=== PATIENT | female | born 1930 | race Caucasian/White ===

== ENCOUNTER 2018-01-28 13:13 | Inpatient (IN) | payer OTHER ==
[2018-01-28 13:22] VITALS: BMI 17.7
[2018-01-28] MEDS ORDERED: MEROPENEM 1 GM in DEXTROSE 5%-WATER 100 ML IVPB ONE ×2 (13:47→16:00)
[2018-01-28] MEDS ORDERED: VANCOMYCIN 1,000 MG in DEXTROSE 5%-WATER - 250 ML IVPB ONE (13:47)
--- NOTE | 2018-01-28 13:52 | PDOC ---
History of Present Illness - General History Source: Patient Exam Limitations: No Limitations - History of Present Illness Initial Comments: 01/28/18 14:31 The patient is a 87 year old female, with a significant PMH of hypertension, CVA , who presents to the emergency department from wound care with measured fever and worsening erythema/warmth/swelling of the right lower extremity. The patient states she has a right lower extremity wound just above the right ankle for which she follows with wound care every 1-2 weeks for the past 2 years. The patient states today she was sent to the emergency department as she was noted to be febrile and had increased warmth/swelling/erythema surrounding the RLE wound. The patient endorses chills and states she has chronic right ankle pain ( denies any new pain). The patient denies chest pain, shortness of breath, headache and dizziness. Denies nausea, vomit, diarrhea and constipation. Denies dysuria, frequency, urgency and hematuria. Allergies: aspirin, penicillins, [sulfasalazine] <Israel Luque - Last Filed: 01/28/18 16:53> <Luis Davis - Last Filed: 01/28/18 17:05> - General Chief Complaint: Wound Stated Complaint: WOUND Time Seen by Provider: 01/28/18 13:50 Past History <Israel Luque - Last Filed: 01/28/18 16:53> - Past Medical History Anemia: No Asthma: No Cancer: No Cardiac Disorders: No CVA: Yes COPD: No CHF: No Dementia: No Diabetes: No GI Disorders: No Disorders: Yes (over active bladder) HTN: Yes Hypercholesterolemia: No Liver Disease: No Seizures: No Thyroid Disease: No - Surgical History Abdominal Surgery: Yes Appendectomy: Yes Cardiac Surgery: No Cholecystectomy: No Lung Surgery: No Orthopedic Surgery: No - Suicide/Smoking/Psychosocial Hx Smoking History: Never smoked Have you smoked in the past 12 months: No Hx Alcohol Use: No Drug/Substance Use Hx: No <Luis Davis - Last Filed: 01/28/18 17:05> - Past Medical History Allergies/Adverse Reactions: Allergies Allergy/AdvReac Type Severity Reaction Status Date / Time aspirin Allergy Verified 01/28/18 13:18 Penicillins Allergy Verified 01/28/18 13:18 sulfasalazine Allergy Uncoded 01/28/18 13:18 Home Medications: Ambulatory Orders Amlodipine Besylate/Benazepril 5 mg PO DAILY 11/08/15 Tylenol 325 mg PO PRN 11/08/15 Multivitamin 1 tab PO DAILY 12/13/15 Vitamin B12 1 tab PO DAILY 12/27/15 Vitamin C 1 tab PO DAILY 01/29/17 Review of Systems - Review of Systems Comments:: 01/28/18 14:31 A complete review of 10 out of 10 review of systems is taken and is negative apart from what is previously mentioned below and in the HPI. <Israel Luque - Last Filed: 01/28/18 16:53> *Physical Exam - Vital Signs Last Vital Signs Temp Pulse Resp BP Pulse Ox 98.1 F 71 18 164/57 96 01/28/18 13:17 01/28/18 13:17 01/28/18 13:17 01/28/18 13:17 01/28/18 13:17 - Physical Exam Comments: 01/28/18 14:31 Vitals: Triage vital signs reviewed General Appearance: No acute distress, well nourished, well developed Head: Atraumatic Neck: Supple; No nuchal rigidity Chest Wall: Nontender Cardiac: Regular rate and rhythm, no murmurs, no rubs, no gallops Lungs: Clear to auscultation bilateral, good air movement bilaterally Abdomen: Soft, nondistended, normal bowel sounds, nontender to palpation Rectal: Exam deferred Extremities: (+) 16 cm wound from the dorsal aspect of the right foot to the distal anterior calf, warm, edematous and erythematous. (+) Erythema circumscribing the leg. No cyanosis, clubbing. Skin: Warm and dry, no rashes or lesions, no rash, no petechiae Psych: Normal mood, normal affect <Israel Luque - Last Filed: 01/28/18 16:53> - Vital Signs Last Vital Signs Temp Pulse Resp BP Pulse Ox 98.1 F 71 18 164/57 96 01/28/18 13:17 01/28/18 13:17 01/28/18 13:17 01/28/18 13:17 01/28/18 13:17 <Luis Davis - Last Filed: 01/28/18 17:05> Heart Score/ECG Review - ECG Impressions Comment:: 01/28/18 14:33 EKG performed at 1425 demonstrates sinus rhythm no ST elevations or T-wave inversions left axis deviation Interpreted by me. <Luis Davis - Last Filed: 01/28/18 17:05> ED Treatment Course - LABORATORY CBC & Chemistry Diagram: 01/28/18 13:52 01/28/18 13:52 <Israel Luque - Last Filed: 01/28/18 16:53> - LABORATORY CBC & Chemistry Diagram: 01/28/18 13:52 01/28/18 13:52 - RADIOLOGY Radiology Studies Ordered: Category Date Time Status CHEST X-RAY PORTABLE* [RAD] Stat Radiology 01/28/18 13:46 Ordered <Luis Davis - Last Filed: 01/28/18 17:05> Medical Decision Making - Medical Decision Making 01/28/18 14:34 Progressively worsening right lower extremity ulcer disease. Sent from wound clinic for IV antibiotics. Seen by infectious disease. Recommends Vanc and Zosyn. Troponin of indeterminate value. We will admit to telemetry and trend troponins. ASA held 2/2 allergy Will admit to medicine for further management. 01/28/18 17:04 01/28/18 17:04 <Luis Davis - Last Filed: 01/28/18 17:05> *DC/Admit/Observation/Transfer - Attestations Scribe Attestion: 01/28/18 14:41 Documentation prepared by Israel Luque, acting as paramedical aide for Luis Davis MD. <Israel Luque - Last Filed: 01/28/18 16:53> - Discharge Dispostion Decision to Admit order: Yes <Luis Davis - Last Filed: 01/28/18 17:05> Diagnosis at time of Disposition: Venous ulcer Cellulitis Qualifiers: Site of cellulitis: extremity Site of cellulitis of extremity: lower extremity Laterality: right Qualified Code(s): L03.115 - Cellulitis of right lower limb - Referrals Referrals: Esvin Zaldivar MD [Primary Care Provider] - - Patient Instructions - Post Discharge Activity
[2018-01-28] MEDS ORDERED: VANCOMYCIN 1 GRAM (PRE-DOCKED) 1,000 MG/250 ML BAG IVPB ONE (14:16)
[2018-01-28 14:26] LABS: BASO % 0.3 % (0-2.0); EOS % 0.8 % (0-4.5); HEMATOCRIT 55.5 % (32.4-45.2); HEMOGLOBIN 18.1 GM/dL (10.7-15.3); LYMPH % 7.2 % (8-40); MCH 31.9 pg (25.7-33.7); MCHC 32.6 g/dl (32.0-36.0); MEAN PLT VOLUME 8.7 fl (7.5-11.1); MONO % 7.7 % (3.8-10.2); PLATELET COUNT 479 K/MM3 (134-434); RBC 5.66 M/mm3 (3.60-5.2); RDW 15.8 % (11.6-15.6); WHITE BLOOD COUNT 10.2 K/mm3 (4.0-10.0)
[2018-01-28 14:51] LABS: INR 1.08 (0.83-1.09); PROTHROMBIN TIME (PATIENT) 12.2 SEC (9.7-13.0)
[2018-01-28 14:53] LABS: ACTIVATED PTT 38.4 SECONDS (25.2-36.5); ALBUMIN 3.4 g/dl (3.4-5.0); ALK PHOS 117 U/L (45-117); ANION GAP 6 MMOL/L (8-16); BILIRUBIN,TOTAL 0.5 mg/dL (0.2-1.0); BLOOD UREA NITROGEN 29 mg/dL (7-18); CALCIUM 9.6 mg/dL (8.5-10.1); CHLORIDE 101 mmol/L (98-107); CO2 32 mmol/L (21-32); GLUCOSE,RANDOM 85 mg/dL (74-106); SGPT/ALT 17 U/L (12-78); SODIUM 139 mmol/L (136-145); TOT PROT 8.4 g/dl (6.4-8.2)
[2018-01-28 14:54] LABS: POTASSIUM 4.7 mmol/L (3.5-5.1); SGOT/AST 23 U/L (15-37)
[2018-01-28 14:57] LABS: VENOUS PC02 53.6 mmHg (38-52); VENOUS PH 7.38 (7.32-7.42); VENOUS PO2 23.3 mmHg (28-48)
[2018-01-28] MEDS ORDERED: ACETAMINOPHEN 325 MG TABLET (FP) PO PRN (16:37)
[2018-01-28] MEDS ORDERED: SODIUM CHLORIDE 1,000 ML IV SCH (16:45)
[2018-01-28] MEDS ORDERED: SODIUM CHLORIDE 500 ML IV STA (16:50)
--- NOTE | 2018-01-28 16:56 | PN ---
Teaching Attending Note Name of Resident: Bertha Cabral ATTENDING PHYSICIAN STATEMENT I saw and evaluated the patient. I reviewed the resident's note and discussed the case with the resident. I agree with the resident's findings and plan as documented with exceptions below. SUBJECTIVE: 87 yof with PMHx of Chronic RLE stasis dermatitis with ulceration, being followed at wound care since 2016, prior debridement, seen on 01/15/2018, when was suggested IV antibiotics (vancomycin, ?unclear if received at the [facility]87 [facility]), also with HTN, CVA ?prior deficits, was seen at wound care center today by Dr. Gil noted with chills, worsening right leg ulcer redness/swelling , sent in with concerns for infection. patient OX3 currently but unable to provide detailed history about her leg wound , recent treatment. Reports pain right outer leg area, feels cold currently. Denies any chest pain, palpitations,dyspnea, dizziness, or urinary symptoms. Limited ambulation with walker with no c/o exertional chest pain/dyspnea. 12 point ROS limited but negative except above. Reported itchy rash on forehead after receiving antibotics in the ED, patient states "was scratching as felt other people were using her comb", currently improved, no itching. OBJECTIVE: Vital Signs Period Temp Pulse Resp BP Sys/Nixon Pulse Ox Last 24 Hr 98.1 F 70-71 18-18 143-164/57-72 92-96 Intake & Output 01/25/18 01/26/18 01/27/18 01/28/18 23:59 23:59 23:59 23:59 Weight 110 lb GENERAL: Awake, alert, and fully oriented, in no acute distress. HEAD: Normal with no signs of trauma. HEENT: Right pupil reactive, left pupil prior cataract surgery, ?mild lid droop on left, mild left facial droop, patchy erythematous areas with scabs on forehead (resolving prior MD who had seen her recently in the ED), non pruritic : Ears normal, nares patent, oropharynx clear without exudates. Moist mucous membranes. NECK: Soft, supple, no JVD LUNGS: Breath sounds equal, clear to auscultation bilaterally. No wheezes, and no crackles. No accessory muscle use. HEART: S1s2 regular, ?Systolic murmur in aortic region ABDOMEN: Soft, nontender, not distended, normoactive bowel sounds, no guarding, no rebound, no masses. MUSCULOSKELETAL: Normal range of motion at all joints. No bony deformities or tenderness. No CVA tenderness. UPPER EXTREMITIES: 2+ pulses, warm, well-perfused. No cyanosis. No clubbing. No peripheral edema. 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 Good eye contact. Appropriate mood and affect. SKIN: Warm, dry, normal turgor, no rashes or lesions noted, normal capillary refill. Active Medications Acetaminophen (Tylenol -) 650 mg PO Q6H PRN PRN Reason: FEVER Meropenem 1 gm/ Dextrose 100 mls @ 200 mls/hr IVPB Q8H-IV BARB Vancomycin HCl 1,000 mg/ (Dextrose) 250 mls @ 166.667 mls/hr IVPB Q12H BARB; Protocol Meropenem 1 gm/ Dextrose 100 mls @ 200 mls/hr IVPB Q8H BARB Stop: 01/29/18 08:29 Vancomycin HCl (Vancomycin 1 Gm Premix -) 1 gm in 200 mls @ 133.333 mls/hr IVPB ONCE ONE Stop: 01/29/18 03:29 Active Medications Acetaminophen (Tylenol -) 650 mg PO Q6H PRN PRN Reason: FEVER Meropenem 1 gm/ Dextrose 100 mls @ 200 mls/hr IVPB Q8H-IV BARB Vancomycin HCl 1,000 mg/ (Dextrose) 250 mls @ 166.667 mls/hr IVPB Q12H BARB; Protocol Meropenem 1 gm/ Dextrose 100 mls @ 200 mls/hr IVPB Q8H BARB Stop: 01/29/18 08:29 Vancomycin HCl (Vancomycin 1 Gm Premix -) 1 gm in 200 mls @ 133.333 mls/hr IVPB ONCE ONE Stop: 01/29/18 03:29 Laboratory Results - last 24 hr 01/28/18 01/28/18 01/28/18 13:52 13:52 13:52 WBC 10.2 H RBC 5.66 H Hgb 18.1 H Hct 55.5 H MCV 98.0 H MCH 31.9 MCHC 32.6 RDW 15.8 H Plt Count 479 H MPV 8.7 Absolute Neuts (auto) 8.6 H Neutrophils % 84.0 H Lymphocytes % 7.2 L Monocytes % 7.7 Eosinophils % 0.8 Basophils % 0.3 Nucleated RBC % 0 PT with INR 12.20 INR 1.08 PTT (Actin FS) 38.4 H VBG pH 7.38 POC VBG pCO2 53.6 H POC VBG pO2 23.3 L Mixed VBG HCO3 30.8 H Sodium Potassium Chloride Carbon Dioxide Anion Gap BUN Creatinine Creat Clearance w eGFR Random Glucose Lactic Acid Calcium Total Bilirubin AST ALT Alkaline Phosphatase Troponin I Total Protein Albumin Urine Color Urine Appearance Urine pH Ur Specific [place] Urine Protein Urine Glucose (UA) Urine Ketones Urine Blood Urine Nitrite Urine Bilirubin Urine Urobilinogen Ur Leukocyte Esterase Urine WBC (Auto) Urine RBC (Auto) Ur Epithelial Cells Urine Mucus 01/28/1818 01/28/18 13:52 13:52 16:40 WBC RBC Hgb Hct MCV MCH MCHC RDW Plt Count MPV Absolute Neuts (auto) Neutrophils % Lymphocytes % Monocytes % Eosinophils % Basophils % Nucleated RBC % PT with INR INR PTT (Actin FS) VBG pH POC VBG pCO2 POC VBG pO2 Mixed VBG HCO3 Sodium 139 Potassium 4.7 Chloride 101 Carbon Dioxide 32 Anion Gap 6 L BUN 29 H Creatinine 1.0 Creat Clearance w eGFR 52.33 Random Glucose 85 Lactic Acid 0.8 Calcium 9.6 Total Bilirubin 0.5 AST 23 ALT 17 Alkaline Phosphatase 117 Troponin I 0.11 H Total Protein 8.4 H Albumin 3.4 Urine Color Dkyellow Urine Appearance Slcloudy Urine pH 6.0 Ur Specific [place] 1.016 Urine Protein 2+ H Urine Glucose (UA) Negative Urine Ketones Negative Urine Blood Negative Urine Nitrite Negative Urine Bilirubin Negative Urine Urobilinogen Negative Ur Leukocyte Esterase Negative Urine WBC (Auto) 5 Urine RBC (Auto) 3 Ur Epithelial Cells Rare Urine Mucus Rare CXR no acute process EKG NSR, QS in V1-V2, Biphasic T waves in V5-V6 ASSESSMENT AND PLAN: 87 yof with chronic non healing RLE ulcer here with cellulitis, and elevated troponin. -Acute RLE celluitis superimposed on chronic non healing ulcer with stasis dermatitis -Elevated troponin, ?Demand from above, r/o ACS -Elevated Hb, ?Hemoconcentration, Polycythemia, no prior history -HTN -CVA -Dementia Plan: Discussed with Dr. Del Rio. meropenem/vancomycin. Blood cx sent. Wound care consult Dr. Gil. LLE Duplex. ?rash in the ED, improved currently. Benadryl/Famotidine. Monitor for now NO chest pain or concerning symptoms. EKG noted. Telemetry, cycle cardiac enzymes. 2D echo, cardiology input. Repeat EKG. 250 ml IVF bolus x 1, monitor h/h. Encourage oral fluid intake. Avoid standing IVF for now, pending cardiac w/u given unknown EF and ?h/o valvular disease Home amlodipine. DVTPPX with heparin Retrieve more info from [place] including code status. Dispo admit to telemetry. Plan discussed with patient. Total admit time spent 65 min.
[2018-01-28] MEDS ORDERED: FAMOTIDINE 20 MG/50 ML IVPB 20 MG/50 ML MG IVPB ONE ×2 (17:00→23:30)
[2018-01-28 17:27] LABS: URINE APPEARANCE SLCLOUDY; URINE BILIRUBIN NEGATIVE (<2.0 mg/dL); URINE COLOR DKYELLOW; URINE GLUCOSE (UA) NEGATIVE (NEGATIVE); URINE KETONE NEGATIVE (NEGATIVE); URINE LEUK ESTERASE NEGATIVE (NEGATIVE); URINE NITRITE NEGATIVE (NEGATIVE); URINE UROBILINOGEN NEGATIVE mg/dL (0.2-1.0)
[2018-01-28 17:28] LABS: URINE PROTEIN 2+ (NEGATIVE)
[2018-01-28 17:33] LABS: EPI CELLS RARE /HPF (FEW); URINE MUCUS RARE
--- NOTE | 2018-01-28 17:36 | HP ---
CHIEF COMPLAINT: Non healing and draining R lateral LE wound PCP: Dr Hutton ([facility], [place]) HISTORY OF PRESENT ILLNESS: Pt is an 87 yo F resident of [facility], with PMH of HTN, actinic keratosis, CVA (L sided mild facial deficit), RLE non healing wound, dementia, overactive bladder, brought in by sister after referral from wound care center with worsening draining and erythema of R above ankle wound. Pt has been following Dr Gil at the wound care for the past 2 years every 1-2 weeks for an above R ankle wound. Previously she was recommended for antibiotics- received vanco around last week opf November in [place]. Pt reported subjective chills and increased pain and drainage at wound site a couple of days prior. Pt ambulates with walker. In the ED she received vanco and was noted to have reddish rashes on the forehead with itching. 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, actinic keratosis, RLE non healing wound, dementia, overactive bladder Displaced intertrochnateric fracture- Apr 2016 PAST SURGICAL HISTORY: Cataract extraction Social History: Smoking: Alcohol: Drugs: Family History: Allergies aspirin Allergy (Verified 01/28/18 13:18) Penicillins Allergy (Verified 01/28/18 13:18) sulfasalazine Allergy (Uncoded 01/28/18 13:18) HOME MEDICATIONS: Home Medications Medication Instructions Recorded Amlodipine Besylate/Benazepril 5 mg PO DAILY 11/08/15 Tylenol 325 mg PO PRN 11/08/15 Multivitamin 1 tab PO DAILY 12/13/15 Vitamin B12 1 tab PO DAILY 12/27/15 Vitamin C 1 tab PO DAILY 01/29/17 REVIEW OF SYSTEMS Difficult to ascertain as patient is demented and veers off topic PHYSICAL EXAMINATION Vital Signs - 24 hr 01/28/18 13:17 Temperature 98.1 F Pulse Rate 71 Respiratory 18 Rate Blood Pressure 164/57 O2 Sat by Pulse 96 Oximetry (%) GENERAL: Awake, alert, and oriented to person, place and time with some confusion, in mild respiratory distress. HEAD: Normal with no signs of trauma. Forehead erythematous, pruritic,papular rashes EYES: Pupils equal, round and reactive to light, extraocular movements intact, EARS, NOSE, THROAT: Dry mucous membranes. NECK: Normal range of motion, supple , no JVD, LUNGS: Breath sounds equal, clear to auscultation bilaterally. No wheezes, and no crackles. HEART: Regular rate and rhythm, distant, S1 and S2 ABDOMEN: Soft, nontender, not distended, normoactive bowel sounds, no guarding, no rebound, no masses. MUSCULOSKELETAL: Normal range of motion at all joints. 6x8cm R lateral LE ulcer. Superficial with yellowish exudates, not foul smelling. White dressing. No bleeding. Erythematous warm surroundings. No CVA tenderness. LOWER EXTREMITIES: 2+ pulses, warm, well-perfused. No peripheral edema. NEUROLOGICAL: Cranial nerves II-XII intact. Normal speech. PSYCHIATRIC: Cooperative. Good eye contact. Laboratory Results - last 24 hr 01/28/18 01/28/18 01/28/18 13:52 13:52 13:52 WBC 10.2 H RBC 5.66 H Hgb 18.1 H Hct 55.5 H MCV 98.0 H MCH 31.9 MCHC 32.6 RDW 15.8 H Plt Count 479 H MPV 8.7 Absolute Neuts (auto) 8.6 H Neutrophils % 84.0 H Lymphocytes % 7.2 L Monocytes % 7.7 Eosinophils % 0.8 Basophils % 0.3 Nucleated RBC % 0 PT with INR 12.20 INR 1.08 PTT (Actin FS) 38.4 H VBG pH 7.38 POC VBG pCO2 53.6 H POC VBG pO2 23.3 L Mixed VBG HCO3 30.8 H Sodium Potassium Chloride Carbon Dioxide Anion Gap BUN Creatinine Creat Clearance w eGFR Random Glucose Lactic Acid Calcium Total Bilirubin AST ALT Alkaline Phosphatase Troponin I Total Protein Albumin Urine Color Urine Appearance Urine pH Ur Specific [place] Urine Protein Urine Glucose (UA) Urine Ketones Urine Blood Urine Nitrite Urine Bilirubin Urine Urobilinogen Ur Leukocyte Esterase Urine WBC (Auto) Urine RBC (Auto) Ur Epithelial Cells Urine Mucus 01/28/18 01/28/18 01/28/18 13:52 13:52 16:40 WBC RBC Hgb Hct MCV MCH MCHC RDW Plt Count MPV Absolute Neuts (auto) Neutrophils % Lymphocytes % Monocytes % Eosinophils % Basophils % Nucleated RBC % PT with INR INR PTT (Actin FS) VBG pH POC VBG pCO2 POC VBG pO2 Mixed VBG HCO3 Sodium 139 Potassium 4.7 Chloride 101 Carbon Dioxide 32 Anion Gap 6 L BUN 29 H Creatinine 1.0 Creat Clearance w eGFR 52.33 Random Glucose 85 Lactic Acid 0.8 Calcium 9.6 Total Bilirubin 0.5 AST 23 ALT 17 Alkaline Phosphatase 117 Troponin I 0.11 H Total Protein 8.4 H Albumin 3.4 Urine Color Dkyellow Urine Appearance Slcloudy Urine pH 6.0 Ur Specific [place] 1.016 Urine Protein 2+ H Urine Glucose (UA) Negative Urine Ketones Negative Urine Blood Negative Urine Nitrite Negative Urine Bilirubin Negative Urine Urobilinogen Negative Ur Leukocyte Esterase Negative Urine WBC (Auto) 5 Urine RBC (Auto) 3 Ur Epithelial Cells Rare Urine Mucus Rare Ambulatory Orders Tylenol 325 mg PO PRN 11/08/15 Multivitamin 1 tab PO DAILY 12/13/15 Vitamin B12 1 tab PO DAILY 12/27/15 Vitamin C 1 tab PO DAILY 01/29/17 Amlodipine Besylate 10 mg PO DAILY 01/28/18 Donepezil HCl [Aricept] 5 mg PO HS 01/28/18 Memantine HCl [Namenda Xr] 14 mg PO DAILY 01/28/18 ASSESSMENT/PLAN: 87 yo F resident of [facility], with PMH of HTN, CVA (L sided mild facial deficit), RLE non healing wound, dementia, overactive bladder, brought in by sister after referral from wound care center with worsening draining and erythema of R above ankle wound. #RLE cellulitis with ulcer Meropenem Vanco ID consult- Dr Del Rio RLE duplex ESR, CRP Xray RLE Vascular consult- Dr Gil #Skin rash Itching rash on face R/o drug allergy or vanco / toni syndrome Benadryl /famotidine given, rash resolved Actinic keratosis Unsure if forehead rash was related to the actinic keratosis hx in past #Troponinemia: Elevated trops-0.11, trend Cardio consult- Dr Hummel EKG=- biphasic TW noted in lat leads, repeat EKG Echo #HTN Cont amlodipine #Dementia Cont memantine, donepezil #CVA hx Asa allergy noted in charts #Overactive bladder Stable #FEN 500mls of Nsaline given Monitor lytes and replete as needed Low sodium diet PPx Lovenox No GI required at this time Dispo: Tele Code status: Confirmed DNI/DNR with [facility]- documents to be faxed over Visit type - Emergency Visit Emergency Visit: Yes ED Registration Date: 01/28/18 Care time: The patient presented to the Emergency Department on the above date and was hospitalized for further evaluation of their emergent condition. - New Patient This patient is new to me today: Yes Date on this admission: 01/29/18 - Critical Care Critical Care patient: No Hospitalist Screening - Colonoscopy Questionnaire Colonoscopy Questionnaire: Colonoscopy Questionnaire - Patient: 50 - 75 years old and never had a screening colonoscopy: No History of colon or rectal polyps, or CA: Unknown History of IBD, Crohn's disease or UC: Unknown History of abdominal radiation therapy as a child: Unknown - Relative: 1 with colon or rectal CA, or polyps at age 60 or younger: Unknown Colon or rectal CA diagnosed at age 45 or younger: Unknown Multiple relatives with colon or rectal CA: Unknown - Outcome: Screening Result: Negative Screen
--- NOTE | 2018-01-28 21:45 | HOSP ---
Subjective - Review of Symptoms Subjective: Received fax from patient's [facility] containing DNR/DNI order signed by the patient. Both the patient and her family member both confirm that this is still their wishes. DNR/DNI order entered into the computer and faxed documents placed in patient's paper chart. Physical Examination Vital Signs: Vital Signs Temperature 98.1 F 01/28/18 13:17 Pulse Rate 70 01/28/18 17:55 Respiratory Rate 18 01/28/18 17:55 Blood Pressure 143/72 01/28/18 17:55 O2 Sat by Pulse Oximetry (%) 92 L 01/28/18 17:55 Labs: CBC, BMP 01/28/18 13:52 01/28/18 13:52 Visit type - Emergency Visit Emergency Visit: Yes ED Registration Date: 01/28/18 Care time: The patient presented to the Emergency Department on the above date and was hospitalized for further evaluation of their emergent condition. - New Patient This patient is new to me today: Yes Date on this admission: 01/28/18 - Critical Care Critical Care patient: No
[2018-01-28] MEDS: MEROPENEM 1 GM in DEXTROSE 5%-WATER - 100 ML IVPB SCH (23:19)
[2018-01-28] MEDS: DONEPEZIL HCL 5 MG TABLET (FP) PO SCH (23:22)
[2018-01-28] MEDS: amLODIPine BESYLATE 10 MG TABLET (FP) PO SCH (23:22)
[2018-01-29] MEDS ORDERED: PT OWN MED DRAWER 7, Y5N ONE ×2 (01:42→08:05)
[2018-01-29] MEDS ORDERED: VANCOMYCIN 1 GM PREMIX - 1 GM/200 ML BAG IVPB ONE (02:00)
[2018-01-29] MEDS ORDERED: VANCOMYCIN 1,000 MG in DEXTROSE 5%-WATER - 250 ML IVPB SCH (04:00)
[2018-01-29 06:52] LABS: BASO % 0.9 % (0-2.0); EOS % 2.6 % (0-4.5); HEMOGLOBIN 17.6 GM/dL (10.7-15.3); LYMPH % 7.8 % (8-40); MCH 31.9 pg (25.7-33.7); MCHC 32.5 g/dl (32.0-36.0); MEAN CELL VOLUME 98.2 fl (80-96); MEAN PLT VOLUME 8.4 fl (7.5-11.1); MONO % 8.6 % (3.8-10.2); NEUT % 80.1 % (42.8-82.8); PLATELET COUNT 383 K/MM3 (134-434); RBC 5.49 M/mm3 (3.60-5.2); RDW 15.9 % (11.6-15.6); WHITE BLOOD COUNT 9.7 K/mm3 (4.0-10.0)
[2018-01-29 07:30] LABS: ALBUMIN 2.7 g/dl (3.4-5.0); ANION GAP 7 MMOL/L (8-16); BLOOD UREA NITROGEN 20 mg/dL (7-18); CALCIUM 8.6 mg/dL (8.5-10.1); CHLORIDE 104 mmol/L (98-107); CO2 29 mmol/L (21-32); GLUCOSE,RANDOM 82 mg/dL (74-106); MAGNESIUM 1.9 mg/dL (1.8-2.4); POTASSIUM 4.8 mmol/L (3.5-5.1); SODIUM 140 mmol/L (136-145)
[2018-01-29 07:38] LABS: ALK PHOS 97 U/L (45-117); BILIRUBIN,TOTAL 0.9 mg/dL (0.2-1.0); PHOSPHOROUS 3.1 mg/dL (2.5-4.9); SGOT/AST 17 U/L (15-37); SGPT/ALT 13 U/L (12-78); TOT PROT 7.2 g/dl (6.4-8.2)
[2018-01-29] MEDS: MEROPENEM 1 GM in DEXTROSE 5%-WATER - 100 ML IVPB SCH (08:18)
[2018-01-29] MEDS: amLODIPine BESYLATE 10 MG TABLET (FP) PO SCH (09:00)
[2018-01-29] MEDS ORDERED: PATIENT'S OWN MEDICATION (NON-FORMULARY) (Memantine Hcl [Namenda Xr] 14 MG) PO SCH (10:00)
--- NOTE | 2018-01-29 10:31 | EKG ---
Test Reason : Blood Pressure : / mmHG Vent. Rate : 070 BPM Atrial Rate : 070 BPM P-R Int : 170 ms QRS Dur : 100 ms QT Int : 404 ms P-R-T Axes : 026 -43 067 degrees QTc Int : 436 ms NORMAL SINUS RHYTHM LEFT AXIS DEVIATION MODERATE VOLTAGE CRITERIA FOR LVH, MAY BE NORMAL VARIANT CANNOT RULE OUT SEPTAL INFARCT (CITED ON OR BEFORE 28-JAN-2018) ABNORMAL ECG WHEN COMPARED WITH ECG OF 28-JAN-2018 14:25, PREMATURE ATRIAL COMPLEXES ARE NO LONGER PRESENT Confirmed by ESAU LARA, DRISS ([id number]) on 01/29/2018 10:31:00 AM Referred By: Confirmed By:DRISS CIFUENTES MD
--- NOTE | 2018-01-29 10:32 | EKG ---
Test Reason : Blood Pressure : / mmHG Vent. Rate : 079 BPM Atrial Rate : 079 BPM P-R Int : 166 ms QRS Dur : 100 ms QT Int : 386 ms P-R-T Axes : 037 -42 063 degrees QTc Int : 442 ms SINUS RHYTHM WITH PREMATURE ATRIAL COMPLEXES LEFT AXIS DEVIATION MODERATE VOLTAGE CRITERIA FOR LVH, MAY BE NORMAL VARIANT CANNOT RULE OUT SEPTAL INFARCT , AGE UNDETERMINED ABNORMAL ECG NO PREVIOUS ECGS AVAILABLE Confirmed by ESAU LARA, DRISS ([id number]) on 01/29/2018 10:31:37 AM Referred By: Confirmed By:DRISS CIFUENTES MD
[2018-01-29] MEDS ORDERED: ENOXAPARIN NA (PORCINE) 60 MG/0.6 ML DISP.SYRIN SQ ONE (12:30)
--- NOTE | 2018-01-29 13:14 | CON.CARD ---
Consult Consult Specialty:: Cardiology Referred by:: Jocelyn Reason for Consultation:: elevated troponin - History of Present Illness Chief Complaint: elevated troponin History of Present Illness: 87F h/o HTN, CVA, RLE nonhealing wound, dementia p/w worsening draining and erythema from foot wound. Has been seeing Dr. Gil at wound care, on abx. In the ER labs notable for WBC 10.2, H/H 18.2/55.5, trop 0.11, lactate 0.8. Received IV abx. Trop 0.11->0.2->0.37->0.35. No chest pain, dyspnea, orthopnea , PND. RLE venous ultrasound shows extensive DVT in common and distal superficial femoral veins and popliteal. Patient is on lovenox for anticoagulation, CTA chest ordered and echo is pending. Denies complaints currently, however history is limited due to dementia. 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 Cardio/Vascular: Yes: HTN - Alcohol/Substance Use Hx Alcohol Use: No - Smoking History Smoking history: Never smoked Have you smoked in the past 12 months: No Home Medications - Allergies Allergies/Adverse Reactions: Allergies Allergy/AdvReac Type Severity Reaction Status Date / Time aspirin Allergy Verified 01/28/18 13:18 Penicillins Allergy Verified 01/28/18 13:18 sulfasalazine Allergy Uncoded 01/28/18 13:18 - Home Medications Home Medications: Ambulatory Orders Tylenol 325 mg PO PRN 11/08/15 Multivitamin 1 tab PO DAILY 12/13/15 Vitamin B12 1 tab PO DAILY 12/27/15 Vitamin C 1 tab PO DAILY 01/29/17 Amlodipine Besylate 10 mg PO DAILY 01/28/18 Donepezil HCl [Aricept] 5 mg PO HS 01/28/18 Memantine HCl [Namenda Xr] 14 mg PO DAILY 01/28/18 Family Disease History - Family Disease History Family History: Unable to Obtain Review of Systems - Review of Systems Constitutional: reports: No Symptoms Eyes: reports: No Symptoms HENT: reports: No Symptoms Neck: reports: No Symptoms Cardiovascular: reports: No Symptoms Respiratory: reports: No Symptoms Gastrointestinal: reports: No Symptoms Genitourinary: reports: No Symptoms Musculoskeletal: reports: No Symptoms Integumentary: reports: No Symptoms Neurological: reports: No Symptoms Endocrine: reports: No Symptoms Hematology/Lymphatic: reports: No Symptoms Psychiatric: reports: No Symptoms Vital Signs: Vital Signs Temperature 98.0 F 01/29/18 10:00 Pulse Rate 72 01/29/18 10:00 Respiratory Rate 18 01/29/18 10:00 Blood Pressure 133/82 01/29/18 10:00 O2 Sat by Pulse Oximetry (%) 95 01/29/18 09:00 Constitutional: Yes: Well Nourished, No Distress, Calm Eyes: Yes: Conjunctiva Clear, EOM Intact HENT: Yes: Atraumatic, Normocephalic Neck: Yes: Supple, Trachea Midline Respiratory: Yes: Regular, CTA Bilaterally Gastrointestinal: Yes: Normal Bowel Sounds, Soft Renal/: Yes: WNL Cardiovascular: Yes: Regular Rate and Rhythm JVD: No Carotid Bruit: No PMI: Non-Displaced Heart Sounds: Yes: S1, S2 Musculoskeletal: Yes: WNL Extremities: Yes: Other (RLE foot/ankle c bandages) Edema: Yes Edema: RLE: 1+ Peripheral Pulses WNL: No Peripheral Pulses: 1+ Left Doralis Pedis, 1+ Right Dorsalis Pedis Integumentary: Yes: WNL Neurological: Yes: Alert Psychiatric: Yes: Alert - Other Data Labs, Other Data: CBC, BMP 01/29/18 06:05 01/29/18 06:05 INR, PTT INR 1.08 (0.83-1.09) 01/28/18 13:52 Troponin, BNP 01/28/18 01/28/18 01/29/18 13:52 19:30 06:05 Troponin I 0.11 H 0.20 H 0.37 H Troponin, BNP 01/28/18 01/28/18 01/29/18 13:52 19:30 06:05 Troponin I 0.11 H 0.20 H 0.37 H Assessment/Plan EKG: sinus, LAD, LVH RLE venous ultrasound: extensive DVT common and superficial femoral and popliteal veins tele: sinus rhythm 87F h/o HTN, CVA, RLE nonhealing wound, dementia p/w worsening draining and erythema from foot wound, positive trop, DVT pos trop - mild elevation, plateaued - no symptoms concerning for cardiac etiology, EKG no ischemic changes - less likely ACS - given history of extensive DVT concern for PE, CTA ordered. echo is pending, patient is asymptomatic DVT - on anticoagulation with lovenox - vascular consulted, Dr. Gil - CTA ordered to rule out PE as above HTN - stable on amlodipine RLE wound - surgery consulted, IV abx per ID
--- NOTE | 2018-01-29 13:14 | CON.ID ---
Consult Consult Specialty:: infectious diseases Reason for Consultation:: non healing ulcer of left leg,failed outpatient treatment cellulitis of the left leg - History of Present Illness Chief Complaint: pain and swelling of the leg with non healing ulcer History of Present Illness: 87 yo F resident of [facility], with PMH of HTN, actinic keratosis, CVA ( L sided mild facial deficit), RLE non healing wound, dementia, overactive bladder, brought in by sister after referral from wound care center with worsening draining and erythema of R above ankle wound. according to the records patient was given treatment for mrsa as an out patient . patient leg has not improved,rather patient came into the wound care center with fever chills,cellulitis of the left leg and pain and was send to er as patient was in septic condition for further management of her wound and iv abx patient currently in discomfort and wound has drainage and also patient was febrile - History Source History Provided By: Family Member, Medical Record Limitations to Obtaining History: Poor Historian - Alcohol/Substance Use Hx Alcohol Use: No - Smoking History Smoking history: Never smoked Have you smoked in the past 12 months: No Home Medications - Allergies Allergies/Adverse Reactions: Allergies Allergy/AdvReac Type Severity Reaction Status Date / Time aspirin Allergy Verified 01/28/18 13:18 Penicillins Allergy Verified 01/28/18 13:18 sulfasalazine Allergy Uncoded 01/28/18 13:18 - Home Medications Home Medications: Ambulatory Orders Tylenol 325 mg PO PRN 11/08/15 Multivitamin 1 tab PO DAILY 12/13/15 Vitamin B12 1 tab PO DAILY 12/27/15 Vitamin C 1 tab PO DAILY 01/29/17 Amlodipine Besylate 10 mg PO DAILY 01/28/18 Donepezil HCl [Aricept] 5 mg PO HS 01/28/18 Memantine HCl [Namenda Xr] 14 mg PO DAILY 01/28/18 Review of Systems - Review of Systems Constitutional: reports: Fever, Weakness Eyes: reports: No Symptoms HENT: reports: No Symptoms Neck: reports: No Symptoms Cardiovascular: reports: No Symptoms Respiratory: reports: No Symptoms Gastrointestinal: reports: No Symptoms Genitourinary: reports: No Symptoms Breasts: reports: No Symptoms Reported Musculoskeletal: reports: Extremity Pain, Other Integumentary: reports: Erythema, Wound Neurological: reports: No Symptoms Endocrine: reports: No Symptoms Hematology/Lymphatic: reports: No Symptoms Psychiatric: reports: No Symptoms Physical Exam Vital Signs: Vital Signs Temperature 98.0 F 01/29/18 10:00 Pulse Rate 72 01/29/18 10:00 Respiratory Rate 18 01/29/18 10:00 Blood Pressure 133/82 01/29/18 10:00 O2 Sat by Pulse Oximetry (%) 95 01/29/18 09:00 Constitutional: Yes: Calm, Mild Distress, Thin HENT: Yes: Atraumatic, Normocephalic Neck: Yes: Supple, Trachea Midline Cardiovascular: Yes: Regular Rate and Rhythm Respiratory: Yes: Regular, CTA Bilaterally Gastrointestinal: Yes: Normal Bowel Sounds, Soft Musculoskeletal: Yes: WNL Extremities: Yes: Other (left leg cellulitis,wound left leg non healing ulcer left leg) Wound/Incision: Yes: Open to air, Draining, Reddened Neurological: Yes: Alert, Oriented Psychiatric: Yes: Alert, Oriented Labs: CBC, BMP 01/29/18 06:05 01/29/18 06:05 Imaging - Results Chest X-ray: Report Reviewed, Image Reviewed X-ray: Report Reviewed, Image Reviewed Assessment/Plan cellulitits of the left leg wound infection pain leg erythema of the left leg patient got a dose of vanco and meropenam plan will probably need u/s or ct of the leg for any finging abx rest continue current mgmt elevation of the legs rest as per the team await for all reports
--- NOTE | 2018-01-29 13:37 | PN ---
Physical Exam: SUBJECTIVE: Patient seen and examined this AM. Her mental status is similar to yesterday. Pt with no current complaints, though mildly dimented at baseline. OBJECTIVE: Vital Signs Period Temp Pulse Resp BP Sys/Nixon Pulse Ox Last 24 Hr 97.2 F-98.4 F 65-75 16-18 126-151/71-98 92-99 GENERAL: A&O x 3 this morning, no acute distress, though with mild dementia noted HEAD: Rash from yesterday resolved. Normocephalic, atraumatic. EYES: PERRL, no scleral icterus EARS, NOSE, THROAT: oropharynx clear without exudates. Moist mucous membranes. NECK: supple without lymphadenopathy LUNGS: CTA b/l, no crackles or wheezes HEART: Regular rate and rhythm, normal S1 and S2 without murmur ABDOMEN: Soft, nontender to palpation, normoactive bowel sounds MUSCULOSKELETAL: No bony deformities or tenderness. EXTREMITIES: 2+ pulses, warm, well-perfused. [id number] wound on lateral right distal leg, pink with some areas of slough. yellow drainage with minimal foul smell noted. NEUROLOGICAL: Cranial nerves II- and VIII-XII grossly intact. Mild residual facial weakness on left corner of mouth with mild lid droop on left eye. Normal speech mostly though not always appropriate responses PSYCHIATRIC: Cooperative. Good eye contact. Appropriate mood and affect. SKIN: Warm, dry, no rashes or lesions noted Laboratory Results - last 24 hr 01/28/18 01/28/18 01/28/18 13:52 13:52 13:52 WBC 10.2 H RBC 5.66 H Hgb 18.1 H Hct 55.5 H MCV 98.0 H MCH 31.9 MCHC 32.6 RDW 15.8 H Plt Count 479 H MPV 8.7 Absolute Neuts (auto) 8.6 H Neutrophils % 84.0 H Lymphocytes % 7.2 L Monocytes % 7.7 Eosinophils % 0.8 Basophils % 0.3 Nucleated RBC % 0 ESR PT with INR 12.20 INR 1.08 PTT (Actin FS) 38.4 H VBG pH 7.38 POC VBG pCO2 53.6 H POC VBG pO2 23.3 L Mixed VBG HCO3 30.8 H Sodium Potassium Chloride Carbon Dioxide Anion Gap BUN Creatinine Creat Clearance w eGFR Random Glucose Lactic Acid Calcium Phosphorus Magnesium Total Bilirubin AST ALT Alkaline Phosphatase Troponin I C-Reactive Protein Total Protein Albumin Urine Color Urine Appearance Urine pH Ur Specific [place] Urine Protein Urine Glucose (UA) Urine Ketones Urine Blood Urine Nitrite Urine Bilirubin Urine Urobilinogen Ur Leukocyte Esterase Urine WBC (Auto) Urine RBC (Auto) Ur Epithelial Cells Urine Mucus 01/28/18 01/28/18 01/28/18 13:52 13:52 16:40 WBC RBC Hgb Hct MCV MCH MCHC RDW Plt Count MPV Absolute Neuts (auto) Neutrophils % Lymphocytes % Monocytes % Eosinophils % Basophils % Nucleated RBC % ESR PT with INR INR PTT (Actin FS) VBG pH POC VBG pCO2 POC VBG pO2 Mixed VBG HCO3 Sodium 139 Potassium 4.7 Chloride 101 Carbon Dioxide 32 Anion Gap 6 L BUN 29 H Creatinine 1.0 Creat Clearance w eGFR 52.33 Random Glucose 85 Lactic Acid 0.8 Calcium 9.6 Phosphorus Magnesium Total Bilirubin 0.5 AST 23 ALT 17 Alkaline Phosphatase 117 Troponin I 0.11 H C-Reactive Protein Total Protein 8.4 H Albumin 3.4 Urine Color Dkyellow Urine Appearance Slcloudy Urine pH 6.0 Ur Specific [place] 1.016 Urine Protein 2+ H Urine Glucose (UA) Negative Urine Ketones Negative Urine Blood Negative Urine Nitrite Negative Urine Bilirubin Negative Urine Urobilinogen Negative Ur Leukocyte Esterase Negative Urine WBC (Auto) 5 Urine RBC (Auto) 3 Ur Epithelial Cells Rare Urine Mucus Rare 01/28/18 01/28/18 01/28/18 17:55 19:30 20:30 WBC RBC Hgb Hct MCV MCH MCHC RDW Plt Count MPV Absolute Neuts (auto) Neutrophils % Lymphocytes % Monocytes % Eosinophils % Basophils % Nucleated RBC % ESR 10 PT with INR INR PTT (Actin FS) VBG pH POC VBG pCO2 POC VBG pO2 Mixed VBG HCO3 Sodium Potassium Chloride Carbon Dioxide Anion Gap BUN Creatinine Creat Clearance w eGFR Random Glucose Lactic Acid Calcium Phosphorus Magnesium Total Bilirubin AST ALT Alkaline Phosphatase Troponin I 0.20 H C-Reactive Protein 4.2 H Total Protein Albumin Urine Color Urine Appearance Urine pH Ur Specific [place] Urine Protein Urine Glucose (UA) Urine Ketones Urine Blood Urine Nitrite Urine Bilirubin Urine Urobilinogen Ur Leukocyte Esterase Urine WBC (Auto) Urine RBC (Auto) Ur Epithelial Cells Urine Mucus 01/29/18 01/29/18 01/29/18 06:05 06:05 12:40 WBC 9.7 RBC 5.49 H Hgb 17.6 H Hct 54.0 H MCV 98.2 H MCH 31.9 MCHC 32.5 RDW 15.9 H Plt Count 383 D MPV 8.4 Absolute Neuts (auto) 7.8 Neutrophils % 80.1 Lymphocytes % 7.8 L Monocytes % 8.6 Eosinophils % 2.6 D Basophils % 0.9 Nucleated RBC % 0 ESR PT with INR INR PTT (Actin FS) VBG pH POC VBG pCO2 POC VBG pO2 Mixed VBG HCO3 Sodium 140 Potassium 4.8 Chloride 104 Carbon Dioxide 29 Anion Gap 7 L BUN 20 H Creatinine 1.0 Creat Clearance w eGFR 52.33 Random Glucose 82 Lactic Acid Calcium 8.6 Phosphorus 3.1 Magnesium 1.9 Total Bilirubin 0.9 AST 17 ALT 13 Alkaline Phosphatase 97 D Troponin I 0.37 H 0.35 H C-Reactive Protein Total Protein 7.2 Albumin 2.7 L Urine Color Urine Appearance Urine pH Ur Specific [place] Urine Protein Urine Glucose (UA) Urine Ketones Urine Blood Urine Nitrite Urine Bilirubin Urine Urobilinogen Ur Leukocyte Esterase Urine WBC (Auto) Urine RBC (Auto) Ur Epithelial Cells Urine Mucus Active Medications Generic Name Dose Route Start Last Admin Trade Name Freq PRN Reason Stop Dose Admin Acetaminophen 650 mg 01/28/18 16:37 Tylenol - PO Q6H PRN FEVER Amlodipine Besylate 10 mg 01/28/18 19:30 01/29/18 09:00 Norvasc - PO 10 mg DAILY [facility] Administration Donepezil HCl 5 mg 01/28/18 22:00 01/28/18 23:22 Aricept - PO 5 mg HS BARB Administration Enoxaparin Sodium 50 mg 01/29/18 22:00 Lovenox - SQ Q12H [facility] Meropenem 1 gm/ Dextrose 100 mls @ 200 mls/hr 01/28/18 23:59 IVPB Q8H-IV [facility] Vancomycin HCl 1,000 mg/ 250 mls @ 166.667 mls/hr 01/29/18 04:00 Dextrose IVPB Q12H [facility] Protocol Non-Formulary Medication 14 mg 01/29/18 10:00 Memantine Hcl [Namenda Xr] PO DAILY [facility] ASSESSMENT/PLAN: 87 yo female admitted with a chronic right leg wound which was noted to be worsening and required hospitalization and IV antibiotics. Pt was also noted to have Extensive DVT on right leg. Chronic Right Leg Wound -Pt with chronic leg wound for multiple years. Followed at wound care by Dr. Gil. -Was found to have worsening wound with erythema and warmth. Failed outpatient abx. Was sent to the ED from Wound care. -Seen by Dr. Del Rio who agreed pt required Abx. Given Vacomycin and Meropenem D/c meropenem, pt currently receiving Vancomycin -Erythema and swelling slightly improved from yesterday -ID consult and vascular/wound care consult appreciated DVT -Extensive DVTs noted on Right LE Duplex -Duplex of left leg ordered -Pt mildly tachypnic with Troponin 0.11 -> 0.20 -> 0.37 -> 0.35 -CTA chest ordered -Discussed with surgical PA who agrees no current surgical intervention planned for wound, awaiting CTA results Dimentia -At baseline as per the patients sister -Continue home meds Namenda 14 mg PO Daily Aricept 5 mg PO HS HTN -BP stable on this admission -Norvasc 10 mg PO Daily DVT Prophylaxis -Pt on Lovenox 50mg SQ BID for treatment of DVT FEN -Fluids: none -Electrolytes: No electrolyte abnormalities, BMP in AM -Nutrition:Sodium controlled diet Disposition Continue to monitor on telemetry Visit type - Emergency Visit Emergency Visit: Yes ED Registration Date: 01/28/18 Care time: The patient presented to the Emergency Department on the above date and was hospitalized for further evaluation of their emergent condition. - New Patient This patient is new to me today: No - Critical Care Critical Care patient: No
--- NOTE | 2018-01-29 13:40 | PN ---
Progress Note, Physician History of Present Illness: patient doing well no complaints u/s shows dvt pleasantly demented - Current Medication List Current Medications: Active Medications Acetaminophen (Tylenol -) 650 mg PO Q6H PRN PRN Reason: FEVER Amlodipine Besylate (Norvasc -) 10 mg PO DAILY [facility] Last Admin: 01/29/18 09:00 Dose: 10 mg Donepezil HCl (Aricept -) 5 mg PO HS [facility] Last Admin: 01/28/18 23:22 Dose: 5 mg Enoxaparin Sodium (Lovenox -) 50 mg SQ Q12H [facility] Vancomycin HCl 1,000 mg/ (Dextrose) 250 mls @ 166.667 mls/hr IVPB Q12H [facility]; Protocol Non-Formulary Medication (Memantine Hcl [Namenda Xr]) 14 mg PO DAILY [facility] - Objective Vital Signs: Vital Signs Temperature 98.0 F 01/29/18 10:00 Pulse Rate 72 01/29/18 10:00 Respiratory Rate 18 01/29/18 10:00 Blood Pressure 133/82 01/29/18 10:00 O2 Sat by Pulse Oximetry (%) 95 01/29/18 09:00 Constitutional: Yes: No Distress, Calm HENT: Yes: Atraumatic Cardiovascular: Yes: S1, S2 Respiratory: Yes: Regular, CTA Bilaterally Gastrointestinal: Yes: Normal Bowel Sounds, Soft Musculoskeletal: Yes: WNL Extremities: Yes: Erythema (improving), Other Neurological: Yes: Alert, Other (dementia) Labs: CBC, BMP 01/29/18 06:05 01/29/18 06:05 INR, PTT INR 1.08 (0.83-1.09) 01/28/18 13:52 Assessment/Plan cellulitits of the left leg wound infection pain leg erythema of the left leg patient got a dose of vanco and meropenam plan will continue vanco will stop meropenam vascular to see for dvt rest as pert the team
--- NOTE | 2018-01-29 13:58 | PN ---
Teaching Attending Note Name of Resident: Rashawn Conklin ATTENDING PHYSICIAN STATEMENT I saw and evaluated the patient. I reviewed the resident's note and discussed the case with the resident. I agree with the resident's findings and plan as documented with exceptions below. SUBJECTIVE: Patient seen and examined, pleasant, in bed, leg pain improved, no new fevers/ chills. Denies any dyspnea, chest pain, palpitations, abdominal or urinary symptoms. OBJECTIVE: Vital Signs Period Temp Pulse Resp BP Sys/Nixon Pulse Ox Last 24 Hr 97.2 F-98.4 F 65-75 16-18 126-151/71-98 92-99 Intake & Output 01/26/18 01/27/18 01/28/18 01/29/18 23:59 23:59 23:59 23:59 Intake Total 250 350 Balance 250 350 Weight 110 lb 110 lb General: sitting in bed, pleasant, no acute distress, no tachypnea or use of acessory muscles of respiration noted Chest; CTAB, no rales or wheezing appreciated, good effort Abdomen:Soft, NT, ND, positive bowel sounds Extremities: Right lower lateral foot ulcer overall unchanged with yellowish discharge and cream, surrounding erythema/warmth present, Foot/lower leg swelling improved. Positive DP pulses Home Medications Medication Instructions Recorded Tylenol 325 mg PO PRN 11/08/15 Multivitamin 1 tab PO DAILY 12/13/15 Vitamin B12 1 tab PO DAILY 12/27/15 Vitamin C 1 tab PO DAILY 01/29/17 Donepezil HCl [Aricept] 5 mg PO HS 01/28/18 RX: Amlodipine Besylate 10 mg PO DAILY 01/28/18 RX: Memantine HCl [Namenda Xr] 14 mg PO DAILY 01/28/18 Active Medications Acetaminophen (Tylenol -) 650 mg PO Q6H PRN PRN Reason: FEVER Amlodipine Besylate (Norvasc -) 10 mg PO DAILY [facility] Last Admin: 01/29/18 09:00 Dose: 10 mg Donepezil HCl (Aricept -) 5 mg PO HS [facility] Last Admin: 01/28/18 23:22 Dose: 5 mg Enoxaparin Sodium (Lovenox -) 50 mg SQ Q12H [facility] Vancomycin HCl 1,000 mg/ (Dextrose) 250 mls @ 166.667 mls/hr IVPB Q12H [facility]; Protocol Non-Formulary Medication (Memantine Hcl [Namenda Xr]) 14 mg PO DAILY [facility] Laboratory Results - last 24 hr 01/28/18 01/28/18 01/28/18 13:52 13:52 13:52 WBC 10.2 H RBC 5.66 H Hgb 18.1 H Hct 55.5 H MCV 98.0 H MCH 31.9 MCHC 32.6 RDW 15.8 H Plt Count 479 H MPV 8.7 Absolute Neuts (auto) 8.6 H Neutrophils % 84.0 H Lymphocytes % 7.2 L Monocytes % 7.7 Eosinophils % 0.8 Basophils % 0.3 Nucleated RBC % 0 ESR PT with INR 12.20 INR 1.08 PTT (Actin FS) 38.4 H VBG pH 7.38 POC VBG pCO2 53.6 H POC VBG pO2 23.3 L Mixed VBG HCO3 30.8 H Sodium Potassium Chloride Carbon Dioxide Anion Gap BUN Creatinine Creat Clearance w eGFR Random Glucose Lactic Acid Calcium Phosphorus Magnesium Total Bilirubin AST ALT Alkaline Phosphatase Troponin I C-Reactive Protein Total Protein Albumin Urine Color Urine Appearance Urine pH Ur Specific [place] Urine Protein Urine Glucose (UA) Urine Ketones Urine Blood Urine Nitrite Urine Bilirubin Urine Urobilinogen Ur Leukocyte Esterase Urine WBC (Auto) Urine RBC (Auto) Ur Epithelial Cells Urine Mucus 01/28/18 01/28/18 01/28/18 13:52 13:52 16:40 WBC RBC Hgb Hct MCV MCH MCHC RDW Plt Count MPV Absolute Neuts (auto) Neutrophils % Lymphocytes % Monocytes % Eosinophils % Basophils % Nucleated RBC % ESR PT with INR INR PTT (Actin FS) VBG pH POC VBG pCO2 POC VBG pO2 Mixed VBG HCO3 Sodium 139 Potassium 4.7 Chloride 101 Carbon Dioxide 32 Anion Gap 6 L BUN 29 H Creatinine 1.0 Creat Clearance w eGFR 52.33 Random Glucose 85 Lactic Acid 0.8 Calcium 9.6 Phosphorus Magnesium Total Bilirubin 0.5 AST 23 ALT 17 Alkaline Phosphatase 117 Troponin I 0.11 H C-Reactive Protein Total Protein 8.4 H Albumin 3.4 Urine Color Dkyellow Urine Appearance Slcloudy Urine pH 6.0 Ur Specific [place] 1.016 Urine Protein 2+ H Urine Glucose (UA) Negative Urine Ketones Negative Urine Blood Negative Urine Nitrite Negative Urine Bilirubin Negative Urine Urobilinogen Negative Ur Leukocyte Esterase Negative Urine WBC (Auto) 5 Urine RBC (Auto) 3 Ur Epithelial Cells Rare Urine Mucus Rare 01/28/18 01/28/18 01/28/18 17:55 19:30 20:30 WBC RBC Hgb Hct MCV MCH MCHC RDW Plt Count MPV Absolute Neuts (auto) Neutrophils % Lymphocytes % Monocytes % Eosinophils % Basophils % Nucleated RBC % ESR 10 PT with INR INR PTT (Actin FS) VBG pH POC VBG pCO2 POC VBG pO2 Mixed VBG HCO3 Sodium Potassium Chloride Carbon Dioxide Anion Gap BUN Creatinine Creat Clearance w eGFR Random Glucose Lactic Acid Calcium Phosphorus Magnesium Total Bilirubin AST ALT Alkaline Phosphatase Troponin I 0.20 H C-Reactive Protein 4.2 H Total Protein Albumin Urine Color Urine Appearance Urine pH Ur Specific [place] Urine Protein Urine Glucose (UA) Urine Ketones Urine Blood Urine Nitrite Urine Bilirubin Urine Urobilinogen Ur Leukocyte Esterase Urine WBC (Auto) Urine RBC (Auto) Ur Epithelial Cells Urine Mucus 01/29/18 01/29/18 01/29/18 06:05 06:05 12:40 WBC 9.7 RBC 5.49 H Hgb 17.6 H Hct 54.0 H MCV 98.2 H MCH 31.9 MCHC 32.5 RDW 15.9 H Plt Count 383 D MPV 8.4 Absolute Neuts (auto) 7.8 Neutrophils % 80.1 Lymphocytes % 7.8 L Monocytes % 8.6 Eosinophils % 2.6 D Basophils % 0.9 Nucleated RBC % 0 ESR PT with INR INR PTT (Actin FS) VBG pH POC VBG pCO2 POC VBG pO2 Mixed VBG HCO3 Sodium 140 Potassium 4.8 Chloride 104 Carbon Dioxide 29 Anion Gap 7 L BUN 20 H Creatinine 1.0 Creat Clearance w eGFR 52.33 Random Glucose 82 Lactic Acid Calcium 8.6 Phosphorus 3.1 Magnesium 1.9 Total Bilirubin 0.9 AST 17 ALT 13 Alkaline Phosphatase 97 D Troponin I 0.37 H 0.35 H C-Reactive Protein Total Protein 7.2 Albumin 2.7 L Urine Color Urine Appearance Urine pH Ur Specific [place] Urine Protein Urine Glucose (UA) Urine Ketones Urine Blood Urine Nitrite Urine Bilirubin Urine Urobilinogen Ur Leukocyte Esterase Urine WBC (Auto) Urine RBC (Auto) Ur Epithelial Cells Urine Mucus RLE duplex with extensive DVT EKG no evidence [id number] noted. 2D echo (Called lab, report pending) ASSESSMENT AND PLAN: 87 yof with chronic non healing RLE ulcer here with cellulitis, and elevated troponin. -Acute RLE celluitis superimposed on chronic non healing ulcer with stasis dermatitis -Extensive RLE DVT, likely from immobility, r/o hypercoagulability/underlying malignancy -Elevated troponin, ?Demand from above, r/o right heart strain, given Extensive RLE DVT -Elevated Hb, ?Hemoconcentration, Polycythemia, no prior history, improved -HTN -CVA -Dementia Plan: ID input noted. Vancomycin renal dose with monitoring. Vascular surgery/Wound care consult consult with Dr. Gil. RLE DVT noted. start lovenox. Check LLE DVT. Discussed with Dr. Gil, follow up recs. CTA chest. Called 2D echo lab, await read. Discussed with Dr. Mendoza. Tn slow rising, follow till trended down. Telemetry with no events. Hematology consult Dr. Kraus, guide further treatment DVT from ?Prolonged immobility, will need routine screening for malignancy eventually. Blood cx neg so far. Wound care consult Dr. Gil. ?rash in the ED, resolved with benadryl/famotidine. Encourage oral fluid intake. Avoid standing IVF for now, pending cardiac w/u given unknown EF and ?h/o valvular disease Home amlodipine. DVTPPX lovenox as above Code status: Advance directives DNR/DNI. Plan discussed with patient. Discussed with RN and Dr. Del Rio, Dr. Gil, Dr. Mendoza. Will continue to monitor closely.
--- NOTE | 2018-01-29 15:13 | CONSULT ---
- Consultation REQUESTING PROVIDER: CONSULT REQUEST: We have been asked to surgically evaluate this patient for right LE cellulitis/ DVT. PCP:Asia Banks MD HISTORY OF PRESENT ILLNESS: 87 year old female, with a significant PMH of HTN, CVA, and Dementia, sent by Dr Gil in the wound care clinic yesterday for worsening cellulitis of right LE. The patient has been followed by wound care for chronic ulcer of right LE for over a year. After patient was admitted for IV ABX, a doppler of the right LE revealed extensive DVTs in her right LE. PMHx: HTN, CVA, Dementia Surgical History Abdominal Surgery: Yes Appendectomy: Yes Cardiac Surgery: No Cholecystectomy: No Lung Surgery: No Orthopedic Surgery: No Home Medications Medication Instructions Recorded Tylenol 325 mg PO PRN 11/08/15 Multivitamin 1 tab PO DAILY 12/13/15 Vitamin B12 1 tab PO DAILY 12/27/15 Vitamin C 1 tab PO DAILY 01/29/17 Amlodipine Besylate 10 mg PO DAILY 01/28/18 Donepezil HCl [Aricept] 5 mg PO HS 01/28/18 Memantine HCl [Namenda Xr] 14 mg PO DAILY 01/28/18 Allergies Allergy/AdvReac Type Severity Reaction Status Date / Time aspirin Allergy Verified 01/28/18 13:18 Penicillins Allergy Verified 01/28/18 13:18 sulfasalazine Allergy Uncoded 01/28/18 13:18 REVIEW OF SYSTEMS: obtained from patient chart as patient demented Constitutional: reports: Fever, Weakness Eyes: reports: No Symptoms HENT: reports: No Symptoms Neck: reports: No Symptoms Cardiovascular: reports: No Symptoms Respiratory: reports: No Symptoms Gastrointestinal: reports: No Symptoms Genitourinary: reports: No Symptoms Breasts: reports: No Symptoms Reported Musculoskeletal: reports: Extremity Pain, Other Integumentary: reports: Erythema, Wound Neurological: reports: No Symptoms Endocrine: reports: No Symptoms Hematology/Lymphatic: reports: No Symptoms Psychiatric: reports: No Symptoms PHYSICAL EXAM: GENERAL: Awake, alert, pleasantly demented HEAD: Normal with no signs of trauma. EYES: sclera anicteric, conjunctiva clear. LUNGS: unlabored resp obn RA, No accessory muscle use. MUSCULOSKELETAL: moving all extremities without significant limitation LOWER EXTREMITIES: Right LE with circumferential erythema extending from malleoli to mid tibia. large chronic ulcer 1iue0rd over lateral aspect of the distal 3rd just superior to the lateral malleolus with fibrinous exudate seen over base, clean well defined boarders, No exposure of deep structures, surrounding tissue erythematous but intact. no active d/c or sign collection, no foul odor. Leg and fooot are well prefused, warm to the touch with +1 DP and TP pulses. 2+ pulses, warm, well-perfused. No calf tenderness. No peripheral edema. left LE warm to the touch and well prefused with +1 DP pulses +2 TP pulses. NEUROLOGICAL: Normal speech, gait not observed. PSYCH: Cooperative. Good eye contact. Appropriate mood and affect. SKIN: Warm, dry, normal turgor, Vital Signs Temperature 98.0 F 01/29/18 10:00 Pulse Rate 72 01/29/18 10:00 Respiratory Rate 18 01/29/18 10:00 Blood Pressure 133/82 01/29/18 10:00 O2 Sat by Pulse Oximetry (%) 95 01/29/18 09:00 Lab Results WBC 9.7 K/mm3 (4.0-10.0) 01/29/18 06:05 RBC 5.49 M/mm3 (3.60-5.2) H 01/29/18 06:05 Hgb 17.6 GM/dL (10.7-15.3) H 01/29/18 06:05 Hct 54.0 % (32.4-45.2) H 01/29/18 06:05 MCV 98.2 fl (80-96) H 01/29/18 06:05 MCHC 32.5 g/dl (32.0-36.0) 01/29/18 06:05 RDW 15.9 % (11.6-15.6) H 01/29/18 06:05 Plt Count 383 K/MM3 (134-434) D 01/29/18 06:05 Sodium 140 mmol/L (136-145) 01/29/18 06:05 Potassium 4.8 mmol/L (3.5-5.1) 01/29/18 06:05 Chloride 104 mmol/L (98-107) 01/29/18 06:05 Carbon Dioxide 29 mmol/L (21-32) 01/29/18 06:05 Anion Gap 7 MMOL/L (8-16) L 01/29/18 06:05 BUN 20 mg/dL (7-18) H 01/29/18 06:05 Creatinine 1.0 mg/dL (0.55-1.02) 01/29/18 06:05 Random Glucose 82 mg/dL (74-106) 01/29/18 06:05 Calcium 8.6 mg/dL (8.5-10.1) 01/29/18 06:05 INR 1.08 (0.83-1.09) 01/28/18 13:52 Duplex Doppler Right Lower extremity: Extensive DT involving common and distal superficial femoral veins and popliteal veins. Problem List - Problems (1) DVT (deep venous thrombosis) Assessment/Plan: Acute RLE celluitis superimposed on chronic non healing ulcer. Extensive RLE DVT, likely from immobility, r/o hypercoagulability/underlying malignancy. Plan: 1) Anticoagulation for DVT- started per medicine 2) IV ABX per ID 3) DVT work up per medicine, chest CTA, left LE Duplex, hematology consult appreciated 4) Bactroban and Santyl to wound daily 5) Vascular to follow Code(s): I82.409 - ACUTE EMBOLISM AND THOMBOS UNSP DEEP VN UNSP LOWER EXTREMITY (2) Cellulitis of right lower extremity Code(s): L03.115 - CELLULITIS OF RIGHT LOWER LIMB (3) Venous stasis ulcer of right lower extremity Code(s): I83.019 - VARICOSE VEINS OF RIGHT LOWER EXTREMITY W ULCER OF UNSP SITE ; L97.919 - NON-PRS CHRONIC ULC UNSP PRT OF R LOW LEG W UNSP SEVERITY
--- NOTE | 2018-01-29 15:51 | CONSULT ---
Consultation: REQUESTING PROVIDER: CONSULT REQUEST: We have been asked to medically evaluate this patient for ( hypercoagulable workup). HISTORY OF PRESENT ILLNESS: Patient is an 87 year old female resident of [facility], with PMH of HTN, actinic keratosis, CVA (L sided mild facial deficit), RLE non healing wound, dementia, overactive bladder, brought in by sister after referral from wound care center with worsening draining and erythema of R above ankle wound. Pt has been following Dr Gil at the wound care for the past 2 years every 1-2 weeks for an above R ankle wound. Previously she was recommended for antibiotics- received vanco around last week of November in [place]. Pt reported subjective chills and increased pain and drainage at wound site a couple of days prior. Pt ambulates with walker. ER course was notable for: (1) WBC-10.2, H&H-18.1/55.5, trops 0.11, LA-0.8 (2) EKG-vent 79bpm, QTc-436,LAD, PACs, Biphasic TwI- lat leads (3) Recent Travel: None PAST MEDICAL HISTORY: HTN, CVA (L sided mild facial deficit)-2014, actinic keratosis, RLE non healing wound, dementia, overactive bladder Displaced intertrochanteric fracture- Apr 2016 PAST SURGICAL HISTORY: Cataract extraction Social History: Smoking: Alcohol: Drugs: Family History: Allergies aspirin Allergy (Verified 01/28/18 13:18) Penicillins Allergy (Verified 01/28/18 13:18) sulfasalazine Allergy (Uncoded 01/28/18 13:18) REVIEW OF SYSTEMS: CONSTITUTIONAL: Absent: fever, chills, diaphoresis, generalized weakness, malaise, loss of appetite, weight change HEENT: Absent: rhinorrhea, nasal congestion, throat pain, throat swelling, difficulty swallowing, mouth swelling, ear pain, eye pain, visual changes CARDIOVASCULAR: Absent: chest pain, syncope, palpitations, irregular heart rate, lightheadedness , peripheral edema RESPIRATORY: Absent: cough, shortness of breath, dyspnea with exertion, orthopnea, wheezing, stridor, hemoptysis GASTROINTESTINAL: Absent: abdominal pain, abdominal distension, nausea, vomiting, diarrhea, constipation, melena, hematochezia GENITOURINARY: Absent: dysuria, frequency, urgency, hesitancy, hematuria, flank pain, genital pain MUSCULOSKELETAL: Absent: myalgia, arthralgia, joint swelling, back pain, neck pain SKIN: Absent: rash, itching, pallor HEMATOLOGIC/IMMUNOLOGIC: Absent: easy bleeding, easy bruising, lymphadenopathy, frequent infections ENDOCRINE: Absent: unexplained weight gain, unexplained weight loss, heat intolerance, cold intolerance NEUROLOGIC: Absent: headache, focal weakness or paresthesias, dizziness, unsteady gait, seizure, mental status changes, bladder or bowel incontinence PSYCHIATRIC: Absent: anxiety, depression, suicidal or homicidal ideation, hallucinations. PHYSICAL EXAMINATION Vital Signs - 24 hr 01/28/18 01/28/18 01/28/18 17:55 20:50 21:00 Temperature Pulse Rate Pulse Rate [ 70 68 Right Radial] Respiratory 18 16 18 Rate Blood Pressure Blood Pressure 143/72 146/71 [Right Arm] O2 Sat by Pulse 92 L 99 97 Oximetry (%) 01/28/18 01/29/18 01/29/18 23:42 01:33 02:13 Temperature 97.2 F L 98.4 F Pulse Rate 75 71 Pulse Rate [ Right Radial] Respiratory 16 18 16 Rate Blood Pressure 126/98 141/73 Blood Pressure [Right Arm] O2 Sat by Pulse 97 Oximetry (%) 01/29/18 01/29/18 01/29/18 06:00 09:00 10:00 Temperature 98.2 F 98.0 F Pulse Rate 65 72 Pulse Rate [ Right Radial] Respiratory 16 18 Rate Blood Pressure 151/82 133/82 Blood Pressure [Right Arm] O2 Sat by Pulse 95 Oximetry (%) 01/29/18 14:00 Temperature 98.2 F Pulse Rate 77 Pulse Rate [ Right Radial] Respiratory 18 Rate Blood Pressure 139/78 Blood Pressure [Right Arm] O2 Sat by Pulse Oximetry (%) GENERAL: Awake, alert, and fully oriented, in no acute distress. HEAD: Normal with no signs of trauma. EYES: Pupils equal, round and reactive to light, extraocular movements intact, sclera anicteric, conjunctiva clear. No lid lag. EARS, NOSE, THROAT: Ears normal, nares patent, oropharynx clear without exudates. Moist mucous membranes. NECK: Normal range of motion, supple without lymphadenopathy, JVD, or masses. LUNGS: Breath sounds equal, clear to auscultation bilaterally. No wheezes, and no crackles. No accessory muscle use. HEART: Regular rate and rhythm, normal S1 and S2 without murmur, rub or gallop. ABDOMEN: Soft, nontender, not distended, normoactive bowel sounds, no guarding, no rebound, no masses. No hepatomegaly or splenomegaly. MUSCULOSKELETAL: Normal range of motion at all joints. No bony deformities or tenderness. No CVA tenderness. UPPER EXTREMITIES: 2+ pulses, warm, well-perfused. No cyanosis. No clubbing. Cap refill <2 seconds. No peripheral edema. LOWER EXTREMITIES: 2+ pulses, warm, well-perfused. No calf tenderness. No peripheral edema. 6x8cm R lateral LE ulcer. Superficial with yellowish exudates, not foul smelling. White dressing. No bleeding. Erythematous warm surroundings. NEUROLOGICAL: Cranial nerves II-XII intact. Normal speech. Normal gait. PSYCHIATRIC: Cooperative. Good eye contact. Appropriate mood and affect. SKIN: Warm, dry, normal turgor, no rashes or lesions noted. Laboratory Results - last 24 hr 01/28/18 01/28/18 01/28/18 13:52 16:40 17:55 WBC RBC Hgb Hct MCV MCH MCHC RDW Plt Count MPV Absolute Neuts (auto) Neutrophils % Lymphocytes % Monocytes % Eosinophils % Basophils % Nucleated RBC % ESR 10 VBG pH 7.38 POC VBG pCO2 53.6 H POC VBG pO2 23.3 L Mixed VBG HCO3 30.8 H Sodium Potassium Chloride Carbon Dioxide Anion Gap BUN Creatinine Creat Clearance w eGFR Random Glucose Calcium Phosphorus Magnesium Total Bilirubin AST ALT Alkaline Phosphatase Troponin I C-Reactive Protein Total Protein Albumin Urine Color Dkyellow Urine Appearance Slcloudy Urine pH 6.0 Ur Specific Johnson 1.016 Urine Protein 2+ H Urine Glucose (UA) Negative Urine Ketones Negative Urine Blood Negative Urine Nitrite Negative Urine Bilirubin Negative Urine Urobilinogen Negative Ur Leukocyte Esterase Negative Urine WBC (Auto) 5 Urine RBC (Auto) 3 Ur Epithelial Cells Rare Urine Mucus Rare 01/28/18 01/28/18 01/29/18 19:30 20:30 06:05 WBC RBC Hgb Hct MCV MCH MCHC RDW Plt Count MPV Absolute Neuts (auto) Neutrophils % Lymphocytes % Monocytes % Eosinophils % Basophils % Nucleated RBC % ESR VBG pH POC VBG pCO2 POC VBG pO2 Mixed VBG HCO3 Sodium 140 Potassium 4.8 Chloride 104 Carbon Dioxide 29 Anion Gap 7 L BUN 20 H Creatinine 1.0 Creat Clearance w eGFR 52.33 Random Glucose 82 Calcium 8.6 Phosphorus 3.1 Magnesium 1.9 Total Bilirubin 0.9 AST 17 ALT 13 Alkaline Phosphatase 97 D Troponin I 0.20 H 0.37 H C-Reactive Protein 4.2 H Total Protein 7.2 Albumin 2.7 L Urine Color Urine Appearance Urine pH Ur Specific Johnson Urine Protein Urine Glucose (UA) Urine Ketones Urine Blood Urine Nitrite Urine Bilirubin Urine Urobilinogen Ur Leukocyte Esterase Urine WBC (Auto) Urine RBC (Auto) Ur Epithelial Cells Urine Mucus 01/29/18 01/29/18 06:05 12:40 WBC 9.7 RBC 5.49 H Hgb 17.6 H Hct 54.0 H MCV 98.2 H MCH 31.9 MCHC 32.5 RDW 15.9 H Plt Count 383 D MPV 8.4 Absolute Neuts (auto) 7.8 Neutrophils % 80.1 Lymphocytes % 7.8 L Monocytes % 8.6 Eosinophils % 2.6 D Basophils % 0.9 Nucleated RBC % 0 ESR VBG pH POC VBG pCO2 POC VBG pO2 Mixed VBG HCO3 Sodium Potassium Chloride Carbon Dioxide Anion Gap BUN Creatinine Creat Clearance w eGFR Random Glucose Calcium Phosphorus Magnesium Total Bilirubin AST ALT Alkaline Phosphatase Troponin I 0.35 H C-Reactive Protein Total Protein Albumin Urine Color Urine Appearance Urine pH Ur Specific Johnson Urine Protein Urine Glucose (UA) Urine Ketones Urine Blood Urine Nitrite Urine Bilirubin Urine Urobilinogen Ur Leukocyte Esterase Urine WBC (Auto) Urine RBC (Auto) Ur Epithelial Cells Urine Mucus Active Medications Generic Name Dose Route Start Last Admin Trade Name Dangelo PRN Reason Stop Dose Admin Acetaminophen 650 mg 01/28/18 16:37 Tylenol - PO Q6H PRN FEVER Amlodipine Besylate 10 mg 01/28/18 19:30 01/29/18 09:00 Norvasc - PO 10 mg DAILY BARB Administration Collagenase 1 applic 01/30/18 10:00 Santyl - TP DAILY [facility] Protocol Donepezil HCl 5 mg 01/28/18 22:00 01/28/18 23:22 Aricept - PO 5 mg HS BARB Administration Enoxaparin Sodium 50 mg 01/29/18 22:00 Lovenox - SQ Q12H [facility] Vancomycin HCl 1 gm in 200 mls @ 133.333 mls/hr 01/29/18 15:15 Vancomycin 1 Gm Premix - IVPB DAILY@1500 [facility] Protocol Mupirocin 1 applic 01/30/18 10:00 Bactroban 2% Ointment - TP DAILY [facility] Non-Formulary Medication 14 mg 01/29/18 10:00 Memantine Hcl [Namenda Xr] PO DAILY [facility] 87 yo F resident of [facility], with PMH of HTN, CVA (L sided mild facial deficit), RLE non healing wound, dementia, overactive bladder, brought in by sister after referral from wound care center with worsening draining and erythema of R above ankle wound. ASSESSMENT: Acute RLE cellulitis with non healing ulcer RLE DVT Polycythemia Hypertension Dementia CVA PLAN: Extensive RLE DVT Duplex of RLE revealed extensive DVT. Etiology could be: Immobility, malignancy, vasculitis, factor 5 leiden def, Ptn c/s def, antithrombin 3 def Once the etiology is known whether provoked or unprovoked the duration of anticoagulation can be determined All hypercoagulable work up can be done as outpatient. Continue anticoagulation. Plan of care explained to the patient. She verbalized understanding. Case discussed with Dr. Kraus. Dispo: We will continue to follow the patient. Thank you for this consultative opportunity.
[2018-01-29] MEDS: VANCOMYCIN 1 GM PREMIX - 1 GM/200 ML BAG IVPB SCH (18:19)
--- NOTE | 2018-01-29 18:35 | PN ---
Teaching Attending Note Name of Resident: Taylor Ramsey ATTENDING PHYSICIAN STATEMENT I saw and evaluated the patient. I reviewed the resident's note and discussed the case with the resident. I agree with the resident's findings and plan as documented. 87 yof with h/o HTN, dementia, CVA, chronic non healing RLE ulcer here with cellulitis, and elevated troponin and we have been consulted for extensive RLE DVT. Patient with moderte o severe deentia. Answers yes/no questions but cant aashish out meaningful conversation Also with erythrocytosis currently on lovenox erythrocytosis, nl wbc/platelets will check w/u for underlying myeloproliferative disorder check LDH, uric acid, JAK2 muttion and bcr;abl will follow
[2018-01-29] MEDS: ENOXAPARIN NA (PORCINE) 60 MG/0.6 ML DISP.SYRIN SQ SCH (21:18)
[2018-01-29] MEDS: DONEPEZIL HCL 5 MG TABLET (FP) PO SCH (21:18)
--- NOTE | 2018-01-29 22:22 | ECHO ---
Name: PAOLA NO Exam:Adult Echocardiogram Study Date: 01/29/2018 10:56 AM Age: 87 yrs Reason For Study: R/O CHF Height: 66 in Weight: 110 lb BSA: 1.6 m2 MMode/2D Measurements & Calculations IVSd: 0.93 cm Ao root diam: 3.3 cm LVIDd: 4.4 cm LA dimension: 3.3 cm LVIDs: 3.2 cm LVPWd: 0.84 cm EDV(Teich): 88.7 ml ESV(Teich): 40.5 ml Doppler Measurements & Calculations MV E max terrence: 45.9 cm/sec Ao V2 max: 98.8 cm/sec MV A max terrence: 108.1 cm/sec Ao max P.9 mmHg MV E/A: 0.42 AI P1/2t: 431.2 msec AI max terrence: 304.5 cm/sec TR max terrence: 162.9 cm/sec AI max P.5 mmHg TR max P.6 mmHg AI dec slope: 206.8 cm/sec2 Med Peak E' Terrence: 2.2 cm/sec Med E/e': 20.5 Lat Peak E' Terrence: 1.9 cm/sec Lat E/e': 23.5 Procedure A two-dimensional transthoracic echocardiogram with color flow and Doppler was performed. Left Ventricle The left ventricular size, thickness and function are normal. The left ventricular ejection fraction is normal. E/A reversal consistent with but not diagnostic of poor LV compliance. The left ventricular w all motion is normal. Right Ventricle The right ventricle is not well visualized. Probably normal size and systolic function. Atria Normal left and right atrial size and function. Mitral Valve There is mild mitral valve thickening. There is no mitral valve stenosis. There is mild mitral regurg itation. Tricuspid Valve There is mild tricuspid valve thickening. There is no tricuspid stenosis. There is trace tricuspid regurgitation. Right ventricular systolic pressure is normal. Aortic Valve The aortic valve is normal in structure and function. No hemodynamically significant valvular aortic stenosis. Mild to moderate aortic regurgitation. Pulmonic Valve The pulmonic valve is not well visualized. There is no pulmonic valvular stenosis. There is no pulmon ic valvular regurgitation. Great Vessels The aortic root is normal size. Pericardium/Pleura There is no pericardial effusion. Interpretation Summary The left ventricular size, thickness and function are normal The left ventricular ejection fraction is normal. There is trace tricuspid regurgitation. Right ventricular systolic pressure is normal. E/A reversal consistent with but not diagnostic of poor LV compliance The left ventricular wall motion is normal. Mild to moderate aortic regurgitation. The right ventricle is not well visualized. Probably normal size and systolic function. MD Hussein Mac 01/29/2018 02:47 PM
--- NOTE | 2018-01-30 07:54 | PN ---
Teaching Attending Note Name of Resident: Rashawn Conklin ATTENDING PHYSICIAN STATEMENT I saw and evaluated the patient. I reviewed the resident's note and discussed the case with the resident. I agree with the resident's findings and plan as documented with exceptions below. SUBJECTIVE: Patient seen and examined. oriented to self, but tangential about conversations about her sister. Denies any chest pain dyspnea. Right leg pain improved. ROS overall limited given her dementia and frequent tangential conversations. OBJECTIVE: Vital Signs Period Temp Pulse Resp BP Sys/Nixon Pulse Ox Last 24 Hr 98.0 F-98.7 F 70-81 17-20 133-155/78-98 95-95 Intake & Output 01/27/18 01/28/18 01/29/18 01/30/18 23:59 23:59 23:59 23:59 Intake Total 250 350 120 Balance 250 350 120 Weight 110 lb 110 lb General: lying in bed in no acute distress Extremities: RLE ulcer with some improvemenent in discharge, surrounding erythema/swelling/tenderness improved, right foot edema improved, positive DP pulses Abdomen:soft, NT Chest: decreased effort, positive air entry, no rales or wheezing Active Medications Acetaminophen (Tylenol -) 650 mg PO Q6H PRN PRN Reason: FEVER Amlodipine Besylate (Norvasc -) 10 mg PO DAILY [facility] Last Admin: 01/29/18 09:00 Dose: 10 mg Collagenase (Santyl -) 1 applic TP DAILY [facility]; Protocol Donepezil HCl (Aricept -) 5 mg PO HS [facility] Last Admin: 01/29/18 21:18 Dose: 5 mg Enoxaparin Sodium (Lovenox -) 50 mg SQ Q12H BARB Last Admin: 01/29/18 21:18 Dose: 50 mg Vancomycin HCl (Vancomycin 1 Gm Premix -) 1 gm in 200 mls @ 133.333 mls/hr IVPB DAILY@1500 [facility]; Protocol Last Admin: 01/29/18 18:19 Dose: 133.333 mls/hr Mupirocin (Bactroban 2% Ointment -) 1 applic TP DAILY [facility] Non-Formulary Medication (Memantine Hcl [Namenda Xr]) 14 mg PO DAILY [facility] Laboratory Results - last 24 hr 01/29/18 12:40 Troponin I 0.35 H ASSESSMENT AND PLAN: 87 yof with chronic non healing RLE ulcer here with cellulitis, and elevated troponin. -Acute RLE celluitis superimposed on chronic non healing ulcer with stasis dermatitis -Extensive RLE DVT, likely from immobility, r/o hypercoagulability/underlying malignancy -Elevated troponin, ?Demand from above, Right heart strain ruled out -Elevated Hb, ?Hemoconcentration, Polycythemia, no prior history, improved -HTN -CVA -Dementia Plan: Vancomycin renal dosing day 2, no further rash or concerns. Monitor levels. ID input appreciated. Blood cx neg. Wound care/vascular surgery consult appreciated. Continue lovenox 50 mg BID. LLE neg for DVT. CTA neg. 2D echo limited but no evidence of right heart strain. Tn trended down. Cardiology input appreciated. Telemetry with no events. Hematology input appreciated. Follow up w/u for myeloproliferative disorder. Will need eventual screening for malignancy if patient and family willing. DVT from ?Prolonged immobility, will need routine screening for malignancy eventually. Encourage oral fluid intake. IVF prn. Home amlodipine. DVTPPX lovenox as above Code status: Advance directives DNR/DNI. Plan discussed with nursing and all questions answered.
[2018-01-30 08:05] LABS: BASO % 1.3 % (0-2.0); EOS % 2.8 % (0-4.5); HEMATOCRIT 55.5 % (32.4-45.2); LYMPH % 7.8 % (8-40); MCH 31.8 pg (25.7-33.7); MCHC 32.3 g/dl (32.0-36.0); MEAN CELL VOLUME 98.4 fl (80-96); MEAN PLT VOLUME 8.6 fl (7.5-11.1); MONO % 8.4 % (3.8-10.2); NEUT % 79.7 % (42.8-82.8); PLATELET COUNT 341 K/MM3 (134-434); RBC 5.64 M/mm3 (3.60-5.2); RDW 15.5 % (11.6-15.6); WHITE BLOOD COUNT 8.2 K/mm3 (4.0-10.0)
[2018-01-30 08:17] LABS: CHLORIDE 104 mmol/L (98-107); SODIUM 138 mmol/L (136-145)
--- NOTE | 2018-01-30 08:18 | PN ---
Physical Exam: SUBJECTIVE: Patient seen and examined this AM. No current complaints. States she knows her wound is there but is not having any acute pain or discomfort in her leg. Denies any chest pain, SOB, pain on deep inspiration, cough, n/v/d. OBJECTIVE: Vital Signs Period Temp Pulse Resp BP Sys/Nixon Pulse Ox Last 24 Hr 98.0 F-98.7 F 70-81 17-20 133-155/78-98 95-95 GENERAL: A&O x 3 this morning, no acute distress, though with mild dementia noted HEAD: Rash from yesterday resolved. Normocephalic, atraumatic. EYES: PERRL, no scleral icterus EARS, NOSE, THROAT: oropharynx clear without exudates. Moist mucous membranes. NECK: supple without lymphadenopathy LUNGS: CTA b/l, no crackles or wheezes HEART: Regular rate and rhythm, normal S1 and S2 without murmur ABDOMEN: Soft, nontender to palpation, normoactive bowel sounds MUSCULOSKELETAL: No bony deformities or tenderness. EXTREMITIES: 2+ pulses, warm, well-perfused. [id number] wound on lateral right distal leg, pink with some areas of slough. yellow drainage with minimal foul smell noted. NEUROLOGICAL: Cranial nerves II- and VIII-XII grossly intact. Mild residual facial weakness on left corner of mouth with mild lid droop on left eye. Normal speech mostly though not always appropriate responses PSYCHIATRIC: Cooperative. Good eye contact. Appropriate mood and affect. SKIN: Warm, dry, no rashes or lesions noted Laboratory Results - last 24 hr 01/29/18 01/30/18 12:40 06:45 WBC 8.2 RBC 5.64 H Hgb 18.0 H Hct 55.5 H MCV 98.4 H MCH 31.8 MCHC 32.3 RDW 15.5 Plt Count 341 MPV 8.6 Absolute Neuts (auto) 6.5 Neutrophils % 79.7 Lymphocytes % 7.8 L Monocytes % 8.4 Eosinophils % 2.8 Basophils % 1.3 Nucleated RBC % 0 Troponin I 0.35 H Active Medications Generic Name Dose Route Start Last Admin Trade Name Freq PRN Reason Stop Dose Admin Acetaminophen 650 mg 01/28/18 16:37 Tylenol - PO Q6H PRN FEVER Amlodipine Besylate 10 mg 01/28/18 19:30 01/29/18 09:00 Norvasc - PO 10 mg DAILY [facility] Administration Collagenase 1 applic 01/30/18 10:00 Santyl - TP DAILY [facility] Protocol Donepezil HCl 5 mg 01/28/18 22:00 01/29/18 21:18 Aricept - PO 5 mg HS [facility] Administration Enoxaparin Sodium 50 mg 01/29/18 22:00 01/29/18 21:18 Lovenox - SQ 50 mg Q12H [facility] Administration Vancomycin HCl 1 gm in 200 mls @ 133.333 mls/hr 01/29/18 15:15 01/29/18 18:19 Vancomycin 1 Gm Premix - IVPB 133.333 mls/hr DAILY@1500 [facility] Administration Protocol Mupirocin 1 applic 01/30/18 10:00 Bactroban 2% Ointment - TP DAILY [facility] Non-Formulary Medication 14 mg 01/29/18 10:00 Memantine Hcl [Namenda Xr] PO DAILY [facility] ASSESSMENT/PLAN: 87 yo female admitted with a chronic right leg wound which was noted to be worsening and required hospitalization and IV antibiotics. Pt was also noted to have Extensive DVT on right leg. Chronic Right Leg Wound -Pt with chronic leg wound for multiple years. Followed at wound care by Dr. Gil. -Was found to have worsening wound with erythema and warmth. Failed outpatient abx. Was sent to the ED from Wound care. -Seen by Dr. Del Rio who agreed pt required Abx. Given Meropenem in ED pt currently receiving only Vancomycin -Vancomycin trough for tomorrow prior to 4th dose -Erythema and swelling still improving from yesterday -ID consult and vascular/wound care consult appreciated DVT -Extensive DVTs noted on Right LE Duplex -Duplex of left leg ordered noted with no DVT -Pt mildly tachypnic with Troponin 0.11 -> 0.20 -> 0.37 -> 0.35 -CTA chest with No definite PE -Pt on Lovenox 50 mg BID -H/H noted to be elevated, could require outpatient malignancy/myelodysplastic workup Will start gentle fluids for now Dimentia -At baseline as per the patients sister -Continue home meds Namenda 14 mg PO Daily Aricept 5 mg PO HS HTN -BP stable on this admission -Norvasc 10 mg PO Daily DVT Prophylaxis -Pt on Lovenox 50mg SQ BID for treatment of DVT FEN -Fluids: 1/2 NS @ 42 cc/hr -Electrolytes: No electrolyte abnormalities, BMP in AM -Nutrition:Sodium controlled diet Disposition Continue to monitor on telemetry Visit type - Emergency Visit Emergency Visit: Yes ED Registration Date: 01/28/18 Care time: The patient presented to the Emergency Department on the above date and was hospitalized for further evaluation of their emergent condition. - New Patient This patient is new to me today: No - Critical Care Critical Care patient: No
[2018-01-30 08:27] LABS: INR 1.09 (0.83-1.09); PROTHROMBIN TIME (PATIENT) 12.3 SEC (9.7-13.0)
[2018-01-30 08:30] LABS: ACTIVATED PTT 30.8 SECONDS (25.2-36.5)
[2018-01-30 08:34] LABS: ALBUMIN 2.7 g/dl (3.4-5.0); ALK PHOS 100 U/L (45-117); ANION GAP 6 MMOL/L (8-16); BILIRUBIN,TOTAL 0.7 mg/dL (0.2-1.0); BLOOD UREA NITROGEN 19 mg/dL (7-18); CALCIUM 8.8 mg/dL (8.5-10.1); CO2 28 mmol/L (21-32); CREATININE 0.9 mg/dL (0.55-1.02); GLUCOSE,RANDOM 80 mg/dL (74-106); SGPT/ALT 13 U/L (12-78); TOT PROT 7.4 g/dl (6.4-8.2); URIC ACID 5.1 mg/dL (2.6-7.2)
[2018-01-30 08:37] LABS: LDH 406 U/L (84-246); POTASSIUM 4.9 mmol/L (3.5-5.1); SGOT/AST 36 U/L (15-37)
[2018-01-30] MEDS ORDERED: PT OWN MED DRAWER 7, Y5N ONE (08:45)
[2018-01-30] MEDS: SODIUM CHLORIDE 0.45% 1,000 ML IV SCH (09:06)
[2018-01-30] MEDS: MUPIROCIN 2% TOPICAL OINTMENT 22 GM TUBE TP SCH (09:06)
[2018-01-30] MEDS: COLLAGENASE CLOSTRIDIUM HIST. 30 GRAMS TUBE TP SCH (09:06)
[2018-01-30] MEDS: amLODIPine BESYLATE 10 MG TABLET (FP) PO SCH (09:15)
[2018-01-30] MEDS: ENOXAPARIN NA (PORCINE) 60 MG/0.6 ML DISP.SYRIN SQ SCH ×2 (09:36→21:02)
--- NOTE | 2018-01-30 10:06 | PN ---
Progress Note, Physician History of Present Illness: Pt seen and examined. Events noted. Pt denies RLE pain. Afebrile, alert. - Current Medication List Current Medications: Active Medications Acetaminophen (Tylenol -) 650 mg PO Q6H PRN PRN Reason: FEVER Amlodipine Besylate (Norvasc -) 10 mg PO DAILY [facility] Last Admin: 01/30/18 09:15 Dose: 10 mg Collagenase (Santyl -) 1 applic TP DAILY [facility]; Protocol Last Admin: 01/30/18 09:06 Dose: 1 applic Donepezil HCl (Aricept -) 5 mg PO HS [facility] Last Admin: 01/29/18 21:18 Dose: 5 mg Enoxaparin Sodium (Lovenox -) 50 mg SQ Q12H [facility] Last Admin: 01/30/18 09:36 Dose: 50 mg Vancomycin HCl (Vancomycin 1 Gm Premix -) 1 gm in 200 mls @ 133.333 mls/hr IVPB DAILY@1500 [facility]; Protocol Last Admin: 01/29/18 18:19 Dose: 133.333 mls/hr Sodium Chloride (1/2 Normal Saline) 1,000 mls @ 42 mls/hr IV ASDIR [facility] Last Admin: 01/30/18 09:06 Dose: 42 mls/hr Mupirocin (Bactroban 2% Ointment -) 1 applic TP DAILY [facility] Last Admin: 01/30/18 09:06 Dose: 1 applic Non-Formulary Medication (Memantine Hcl [Namenda Xr]) 14 mg PO DAILY [facility] - Objective Vital Signs: Vital Signs Temperature 98.7 F 01/30/18 06:00 Pulse Rate 74 01/30/18 06:00 Respiratory Rate 20 01/30/18 06:00 Blood Pressure 154/92 01/30/18 06:00 O2 Sat by Pulse Oximetry (%) 95 01/29/18 21:00 Constitutional: Yes: No Distress, Calm Cardiovascular: Yes: Regular Rate and Rhythm Respiratory: Yes: Regular Gastrointestinal: Yes: Normal Bowel Sounds, Soft Extremities: Yes: Erythema (RLE) Wound/Incision: Yes: Dressing Dry and Intact Neurological: Yes: Alert Labs: CBC, BMP 01/30/18 06:45 01/30/18 06:45 INR, PTT INR 1.09 (0.83-1.09) 01/30/18 06:45 Microbiology 01/28/18 16:40 Urine - Urine Clean Catch Urine Culture - Final Contaminated: Please Repeat 01/28/18 13:52 Blood - Peripheral Venous Blood Culture - Preliminary NO GROWTH OBTAINED AFTER 24 HOURS, INCUBATION TO CONTINUE FOR 4 DAYS. 01/28/18 13:52 Blood - Peripheral Venous Blood Culture - Preliminary NO GROWTH OBTAINED AFTER 24 HOURS, INCUBATION TO CONTINUE FOR 4 DAYS. - ....Imaging Ultrasound: Report Reviewed Assessment/Plan 87 y.o. female with PMH of dementia, hx of CVA, HTN, RLE ulcers with MRSA isolated presenting with RLE erythema/chills RLE cellulitis/infected wounds RLE DVT Hx of CVA dementia HTN -- continue Vancomycin, check Vancomycin trough level prior to 4th dose -- monitor renal function -- continue wound care -- on Lovenox Blood cultures no growth 24hrs
--- NOTE | 2018-01-30 10:58 | PN ---
Progress Note (short form) - Note Progress Note: s: no cp sob palps dizzy o: Vital Signs Period Temp Pulse Resp BP Sys/Nixon Pulse Ox Last 24 Hr 98.2 F-98.7 F 70-81 17-20 139-155/78-98 95 Constitutional: Yes: Well Nourished, No Distress, Calm Eyes: Yes: Conjunctiva Clear Neck: Yes: Supple, Trachea Midline Respiratory: Yes: Regular, CTA Bilaterally Gastrointestinal: Yes: Normal Bowel Sounds, Soft Cardiovascular: Yes: Regular Rate and Rhythm JVD: No Heart Sounds: Yes: S1, S2 Extremities: Yes: Other (RLE foot/ankle c bandages) Edema: Yes Edema: RLE: 1+ Peripheral Pulses WNL: No no jaundice diaphoresis Neurological: Yes: Alert Psychiatric: Yes: Alert Current Medications Generic Name Dose Route Start Last Admin Trade Name Freq PRN Reason Stop Dose Admin Acetaminophen 650 mg 01/28/18 16:37 Tylenol - PO Q6H PRN FEVER Amlodipine Besylate 10 mg 01/28/18 19:30 01/30/18 09:15 Norvasc - PO 10 mg DAILY [facility] Administration Collagenase 1 applic 01/30/18 10:00 01/30/18 09:06 Santyl - TP 1 applic DAILY [facility] Administration Protocol Donepezil HCl 5 mg 01/28/18 22:00 01/29/18 21:18 Aricept - PO 5 mg HS [facility] Administration Enoxaparin Sodium 50 mg 01/29/18 22:00 01/30/18 09:36 Lovenox - SQ 50 mg Q12H [facility] Administration Vancomycin HCl 1 gm in 200 mls @ 133.333 mls/hr 01/29/18 15:15 01/29/18 18:19 Vancomycin 1 Gm Premix - IVPB 133.333 mls/hr DAILY@1500 [facility] Administration Protocol Sodium Chloride 1,000 mls @ 42 mls/hr 01/30/18 09:00 01/30/18 09:06 1/2 Normal Saline IV 42 mls/hr ASDIR [facility] Administration Mupirocin 1 applic 01/30/18 10:00 01/30/18 09:06 Bactroban 2% Ointment - TP 1 applic DAILY [facility] Administration Non-Formulary Medication 14 mg 01/29/18 10:00 Memantine Hcl [Namenda Xr] PO DAILY [facility] CBC, BMP 01/30/18 06:45 01/30/18 06:45 Assessment/Plan EKG: sinus, LAD, LVH RLE venous ultrasound: extensive DVT common and superficial femoral and popliteal veins tele: sinus rhythm echo 12/2017: nl lv/rv, mild-mod ar, nl rvsp 87F h/o HTN, CVA, RLE nonhealing wound, dementia p/w worsening draining and erythema from foot wound, positive trop, DVT pos trop - mild elevation, plateaued - no symptoms concerning for cardiac etiology, EKG no ischemic changes - not c/w ACS - echo unremarkable. cta chest shows no pe. DVT - on anticoagulation with lovenox - vascular consulted, Dr. Gil HTN - stable on amlodipine RLE wound - surgery consulted, IV abx per ID can dc tele
[2018-01-30 11:27] LABS: ANISOCYTOSIS 1+; MACROCYTOSIS 0; PLATELET ESTIMATE NORMAL
[2018-01-30] MEDS: VANCOMYCIN 1 GM PREMIX - 1 GM/200 ML BAG IVPB SCH (15:02)
[2018-01-30] MEDS: MEROPENEM 1 GM in DEXTROSE 5%-WATER 100 ML IVPB SCH ×2 (19:25→19:26)
[2018-01-30] MEDS: DONEPEZIL HCL 5 MG TABLET (FP) PO SCH (21:02)
--- NOTE | 2018-01-30 23:19 | PN ---
Progress Note (short form) - Note Progress Note: Patient seen and examined pleasantly confused Last Vital Signs Temp Pulse Resp BP Pulse Ox 97.3 F L 69 20 143/71 98 01/31/18 06:00 01/31/18 06:00 01/31/18 06:00 01/31/18 06:00 01/30/18 20:36 Cor: RSR, No murmurs, No gallops Lungs: Clear to P&A Abd: Soft, Normal bowel sounds, No organomegaly Ext:No significant edema Abnormal Lab Results 01/30/18 01/31/18 06:45 06:30 RBC 5.47 H Hgb 17.4 H Hct 53.7 H MCV 98.2 H RDW 15.8 H Lymphocytes % (Manual) 6.8 L Basophils % (Manual) 2.9 H 87 yof with h/o HTN, dementia, CVA, chronic non healing RLE ulcer here with cellulitis, and elevated troponin and we have been consulted for extensive RLE DVT. Patient with moderte o severe deentia. Answers yes/no questions but cant aashish out meaningful conversation Also with erythrocytosis currently on lovenox erythrocytosis, nl wbc/platelets will check w/u for underlying myeloproliferative disorder check JAK2 muttion and bcr;abl
[2018-01-31 07:54] LABS: BASO % 0.9 % (0-2.0); EOS % 3.1 % (0-4.5); HEMATOCRIT 53.7 % (32.4-45.2); HEMOGLOBIN 17.4 GM/dL (10.7-15.3); LYMPH % 9.1 % (8-40); MCH 31.8 pg (25.7-33.7); MCHC 32.4 g/dl (32.0-36.0); MEAN CELL VOLUME 98.2 fl (80-96); MEAN PLT VOLUME 8.5 fl (7.5-11.1); MONO % 8.1 % (3.8-10.2); NEUT % 78.8 % (42.8-82.8); PLATELET COUNT 377 K/MM3 (134-434); RBC 5.47 M/mm3 (3.60-5.2); RDW 15.8 % (11.6-15.6); WHITE BLOOD COUNT 7.4 K/mm3 (4.0-10.0)
[2018-01-31] MEDS: SODIUM CHLORIDE 0.45% 1,000 ML IV SCH (09:24)
[2018-01-31] MEDS: ENOXAPARIN NA (PORCINE) 60 MG/0.6 ML DISP.SYRIN SQ SCH ×2 (09:25→21:24)
[2018-01-31] MEDS: amLODIPine BESYLATE 10 MG TABLET (FP) PO SCH (09:25)
[2018-01-31] MEDS: COLLAGENASE CLOSTRIDIUM HIST. 30 GRAMS TUBE TP SCH (09:28)
[2018-01-31] MEDS: MUPIROCIN 2% TOPICAL OINTMENT 22 GM TUBE TP SCH (09:29)
--- NOTE | 2018-01-31 10:44 | PN ---
Progress Note (short form) - Note Progress Note: s: no cp sob palps dizzy o: Vital Signs Period Temp Pulse Resp BP Sys/Nixon Pulse Ox Last 24 Hr 97.3 F-98.1 F 65-72 18-20 130-148/71-77 98-98 Constitutional: Yes: Well Nourished, No Distress, Calm Eyes: Yes: Conjunctiva Clear Neck: Yes: Supple, Trachea Midline Respiratory: Yes: Regular, CTA Bilaterally Gastrointestinal: Yes: Normal Bowel Sounds, Soft Cardiovascular: Yes: Regular Rate and Rhythm JVD: No Heart Sounds: Yes: S1, S2 Extremities: Yes: Other (RLE foot/ankle c bandages) Edema: Yes Edema: RLE: 1+ Peripheral Pulses WNL: No no jaundice diaphoresis Neurological: Yes: Alert Psychiatric: Yes: Alert Current Medications Generic Name Dose Route Start Last Admin Trade Name Freq PRN Reason Stop Dose Admin Acetaminophen 650 mg 01/28/18 16:37 Tylenol - PO Q6H PRN FEVER Amlodipine Besylate 10 mg 01/28/18 19:30 01/31/18 09:25 Norvasc - PO 10 mg DAILY [facility] Administration Collagenase 1 applic 01/30/18 10:00 01/31/18 09:28 Santyl - TP 1 applic DAILY [facility] Administration Protocol Donepezil HCl 5 mg 01/28/18 22:00 01/30/18 21:02 Aricept - PO 5 mg HS [facility] Administration Enoxaparin Sodium 50 mg 01/29/18 22:00 01/31/18 09:25 Lovenox - SQ 50 mg Q12H [facility] Administration Vancomycin HCl 1 gm in 200 mls @ 133.333 mls/hr 01/29/18 15:15 01/30/18 15:02 Vancomycin 1 Gm Premix - IVPB 133.333 mls/hr DAILY@1500 [facility] Administration Protocol Sodium Chloride 1,000 mls @ 42 mls/hr 01/30/18 09:00 01/31/18 09:24 1/2 Normal Saline IV 42 mls/hr ASDIR [facility] Administration Mupirocin 1 applic 01/30/18 10:00 01/31/18 09:29 Bactroban 2% Ointment - TP 1 applic DAILY [facility] Administration Non-Formulary Medication 14 mg 01/29/18 10:00 Memantine Hcl [Namenda Xr] PO DAILY [facility] CBC, BMP 01/31/18 06:30 01/30/18 06:45 Assessment/Plan EKG: sinus, LAD, LVH RLE venous ultrasound: extensive DVT common and superficial femoral and popliteal veins echo 12/2017: nl lv/rv, mild-mod ar, nl rvsp 87F h/o HTN, CVA, RLE nonhealing wound, dementia p/w worsening draining and erythema from foot wound, positive trop, DVT pos trop - mild elevation, plateaued - no symptoms concerning for cardiac etiology, EKG no ischemic changes - not c/w ACS - echo unremarkable. cta chest shows no pe. DVT - on anticoagulation with lovenox - vascular consulted HTN - stable on amlodipine RLE wound - surgery consulted, IV abx per ID
[2018-01-31] MEDS ORDERED: PT OWN MED DRAWER 7, Y5N ONE (13:50)
--- NOTE | 2018-01-31 14:07 | PN ---
Physical Exam: SUBJECTIVE: Patient seen and examined, right leg pain improved. Tangential in conversations, denies any chest pain or dyspnea. OBJECTIVE: Vital Signs Period Temp Pulse Resp BP Sys/Nixon Pulse Ox Last 24 Hr 97.3 F-98.1 F 65-72 18-20 130-148/71-77 98-98 GENERAL: AA, oriented to self, in no acute distress Chest: Decreased effort, no rales or wheezing Abdomen:Soft, NT, nD, positive bowel sounds Extremities: RLE wound -improved sloughing/yellowish discharge, erythema/ swelling/warmth tenderness around the ulcer improved, positive DP pulses Neck:soft, supple, no JVD Laboratory Results - last 24 hr 01/31/18 01/31/18 06:30 06:30 WBC 7.4 RBC 5.47 H Hgb 17.4 H Hct 53.7 H MCV 98.2 H MCH 31.8 MCHC 32.4 RDW 15.8 H Plt Count 377 MPV 8.5 Absolute Neuts (auto) 5.8 Neutrophils % 78.8 Lymphocytes % 9.1 Monocytes % 8.1 Eosinophils % 3.1 Basophils % 0.9 Nucleated RBC % 0 Vitamin B12 743 Active Medications Generic Name Dose Route Start Last Admin Trade Name Freq PRN Reason Stop Dose Admin Acetaminophen 650 mg 01/28/18 16:37 Tylenol - PO Q6H PRN FEVER Amlodipine Besylate 10 mg 01/28/18 19:30 01/31/18 09:25 Norvasc - PO 10 mg DAILY [facility] Administration Collagenase 1 applic 01/30/18 10:00 01/31/18 09:28 Santyl - TP 1 applic DAILY [facility] Administration Protocol Donepezil HCl 5 mg 01/28/18 22:00 01/30/18 21:02 Aricept - PO 5 mg HS [facility] Administration Enoxaparin Sodium 50 mg 01/29/18 22:00 01/31/18 09:25 Lovenox - SQ 50 mg Q12H [facility] Administration Vancomycin HCl 1 gm in 200 mls @ 133.333 mls/hr 01/29/18 15:15 01/30/18 15:02 Vancomycin 1 Gm Premix - IVPB 133.333 mls/hr DAILY@1500 [facility] Administration Protocol Sodium Chloride 1,000 mls @ 42 mls/hr 01/30/18 09:00 01/31/18 09:24 1/2 Normal Saline IV 42 mls/hr ASDIR [facility] Administration Mupirocin 1 applic 01/30/18 10:00 01/31/18 09:29 Bactroban 2% Ointment - TP 1 applic DAILY [facility] Administration Non-Formulary Medication 14 mg 01/29/18 10:00 Memantine Hcl [Namenda Xr] PO DAILY [facility] Microbiology 01/28/18 13:52 Blood - Peripheral Venous Blood Culture - Preliminary NO GROWTH OBTAINED AFTER 48 HOURS, INCUBATION TO CONTINUE FOR 3 DAYS. 01/28/18 13:52 Blood - Peripheral Venous Blood Culture - Preliminary NO GROWTH OBTAINED AFTER 48 HOURS, INCUBATION TO CONTINUE FOR 3 DAYS. 01/28/18 16:40 Urine - Urine Clean Catch Urine Culture - Final Contaminated: Please Repeat ASSESSMENT/PLAN: 87 yof with chronic non healing RLE ulcer here with cellulitis, and elevated troponin. -Acute RLE celluitis superimposed on chronic non healing ulcer with stasis dermatitis -Extensive RLE DVT, likely from immobility, r/o hypercoagulability/underlying malignancy -Elevated troponin, ?Demand from above, Right heart strain ruled out -Elevated Hb, ?Hemoconcentration, Polycythemia, no prior history, improved -HTN -CVA -Dementia Plan: Vancomycin renal dosing day 4, no further rash or concerns. Monitor levels before 4th dose today. ID input appreciated. Blood cx neg. Wound care/vascular surgery consult appreciated. Continue lovenox 50 mg BID. LLE neg for DVT. CTA neg. 2D echo limited but no evidence of right heart strain. Tn trended down. Cardiology input appreciated. Telemetry d/fausto. Hematology input appreciated. Follow up w/u for myeloproliferative disorder. Will need eventual screening for malignancy if patient and family willing. Gentle hydration for ow. Home amlodipine. DVTPPX lovenox as above Code status: Advance directives DNR/DNI. Transfer to [facility]. Plan discussed with nursing and all questions answered. Visit type - Emergency Visit Emergency Visit: Yes ED Registration Date: 01/28/18 Care time: The patient presented to the Emergency Department on the above date and was hospitalized for further evaluation of their emergent condition. - New Patient This patient is new to me today: No - Critical Care Critical Care patient: No - Discharge Referral Referred to [facility] Med P.C.: No
[2018-01-31] MEDS: VANCOMYCIN 1 GM PREMIX - 1 GM/200 ML BAG IVPB SCH (14:59)
--- NOTE | 2018-01-31 17:45 | PN ---
Progress Note, Physician History of Present Illness: Pt is alert, states she feels well, remains afebrile. Denies any new complaints. No RLE tenderness. - Current Medication List Current Medications: Active Medications Acetaminophen (Tylenol -) 650 mg PO Q6H PRN PRN Reason: FEVER Amlodipine Besylate (Norvasc -) 10 mg PO DAILY [facility] Last Admin: 01/31/18 09:25 Dose: 10 mg Collagenase (Santyl -) 1 applic TP DAILY [facility]; Protocol Last Admin: 01/31/18 09:28 Dose: 1 applic Donepezil HCl (Aricept -) 5 mg PO HS [facility] Last Admin: 01/30/18 21:02 Dose: 5 mg Enoxaparin Sodium (Lovenox -) 50 mg SQ Q12H [facility] Last Admin: 01/31/18 09:25 Dose: 50 mg Vancomycin HCl (Vancomycin 1 Gm Premix -) 1 gm in 200 mls @ 133.333 mls/hr IVPB DAILY@1500 [facility]; Protocol Last Admin: 01/31/18 14:59 Dose: 133.333 mls/hr Sodium Chloride (1/2 Normal Saline) 1,000 mls @ 42 mls/hr IV ASDIR [facility] Last Admin: 01/31/18 09:24 Dose: 42 mls/hr Mupirocin (Bactroban 2% Ointment -) 1 applic TP DAILY [facility] Last Admin: 01/31/18 09:29 Dose: 1 applic Non-Formulary Medication (Memantine Hcl [Namenda Xr]) 14 mg PO DAILY [facility] - Objective Vital Signs: Vital Signs Temperature 98.3 F 01/31/18 17:38 Pulse Rate 77 01/31/18 17:38 Respiratory Rate 20 01/31/18 17:38 Blood Pressure 152/73 01/31/18 17:38 O2 Sat by Pulse Oximetry (%) 98 01/31/18 10:00 Constitutional: Yes: No Distress, Calm Cardiovascular: Yes: Regular Rate and Rhythm Respiratory: Yes: Regular Gastrointestinal: Yes: Normal Bowel Sounds, Soft Extremities: Yes: Erythema (RLE erythema, edema, mild warmth slowly improving) Wound/Incision: Yes: Dressing Dry and Intact Neurological: Yes: Alert Labs: CBC, BMP 01/31/18 06:30 01/30/18 06:45 INR, PTT INR 1.09 (0.83-1.09) 01/30/18 06:45 Vancomycin trough- 14 Problem List - Problems (1) DVT (deep venous thrombosis) Code(s): I82.409 - ACUTE EMBOLISM AND THOMBOS UNSP DEEP VN UNSP LOWER EXTREMITY (2) Venous ulcer Code(s): I87.8 - OTHER SPECIFIED DISORDERS OF VEINS (3) Cellulitis of right lower extremity Code(s): L03.115 - CELLULITIS OF RIGHT LOWER LIMB (4) Venous (peripheral) insufficiency Code(s): I87.2 - VENOUS INSUFFICIENCY (CHRONIC) (PERIPHERAL) (5) Venous stasis ulcer of right lower extremity Code(s): I83.019 - VARICOSE VEINS OF RIGHT LOWER EXTREMITY W ULCER OF UNSP SITE ; L97.919 - NON-PRS CHRONIC ULC UNSP PRT OF R LOW LEG W UNSP SEVERITY Assessment/Plan 87 y.o. female with PMH of dementia, hx of CVA, HTN, RLE ulcers with MRSA isolated presenting with RLE erythema/chills RLE cellulitis/infected wounds - slowly improving Chronic LE ulcer/venous stasis RLE DVT Hx of CVA dementia HTN -- continue Vancomycin, trough level noted -- continue wound care -- on anticoagulation
[2018-01-31] MEDS: DONEPEZIL HCL 5 MG TABLET (FP) PO SCH (21:24)
[2018-02-01 06:56] LABS: BASO % 0.7 % (0-2.0); EOS % 0.8 % (0-4.5); HEMATOCRIT 60.4 % (32.4-45.2); HEMOGLOBIN 19.5 GM/dL (10.7-15.3); LYMPH % 5.1 % (8-40); MCH 31.6 pg (25.7-33.7); MCHC 32.3 g/dl (32.0-36.0); MEAN CELL VOLUME 97.9 fl (80-96); MEAN PLT VOLUME 8.3 fl (7.5-11.1); MONO % 5.8 % (3.8-10.2); NEUT % 87.6 % (42.8-82.8); PLATELET COUNT 420 K/MM3 (134-434); RBC 6.16 M/mm3 (3.60-5.2); RDW 15.5 % (11.6-15.6); WHITE BLOOD COUNT 12.1 K/mm3 (4.0-10.0)
[2018-02-01] MEDS ORDERED: SODIUM CHLORIDE 250 ML IV STA (07:45)
--- NOTE | 2018-02-01 08:46 | PN ---
Physical Exam: SUBJECTIVE: Patient seen and examined by me at bedside. Patient offers no complaints and states she would like to eat breakfast. Denies any leg pain. Otherwise, patient denies fever, chills, nausea, vomiting, abdominal pain, chest pain, palpitations. OBJECTIVE: Vital Signs Period Temp Pulse Resp BP Sys/Nixon Pulse Ox Last 24 Hr 97.8 F-98.3 F 67-77 16-22 139-164/73-98 98-98 GENERAL: The patient is awake, alert, and oriented to person only, in no acute distress, has baseline dementi EYES: Sclera anicteric, conjunctiva clear. No ptosis. ENT: Moist mucous membranes. NECK: (-) JVD, no carotid bruits LUNGS: CTA Bilaterally with no accessory use HEART: Regular rate and rhythm without murmur, rub or gallop. ABDOMEN: Soft, nontender, nondistended, normoactive bowel sounds, EXTREMITIES: [id number] wound on lateral right distal leg, pink with some areas of slough and yellow drainage NEUROLOGICAL: Mild residual facial weakness on left corner of mouth with mild lid droop on left eye. Laboratory Results - last 24 hr 01/31/18 01/31/18 02/01/18 06:30 15:00 06:00 WBC 12.1 H RBC 6.16 H Hgb 19.5 H Hct 60.4 H MCV 97.9 H MCH 31.6 MCHC 32.3 RDW 15.5 Plt Count 420 MPV 8.3 Absolute Neuts (auto) 10.6 H Neutrophils % 87.6 H Lymphocytes % 5.1 L D Monocytes % 5.8 Eosinophils % 0.8 Basophils % 0.7 Nucleated RBC % 0 Vitamin B12 743 Vancomycin Pre-Dose 14.00 H Active Medications Generic Name Dose Route Start Last Admin Trade Name Freq PRN Reason Stop Dose Admin Acetaminophen 650 mg 01/28/18 16:37 Tylenol - PO Q6H PRN FEVER Amlodipine Besylate 10 mg 01/28/18 19:30 01/31/18 09:25 Norvasc - PO 10 mg DAILY [facility] Administration Collagenase 1 applic 01/30/18 10:00 01/31/18 09:28 Santyl - TP 1 applic DAILY [facility] Administration Protocol Donepezil HCl 5 mg 01/28/18 22:00 01/31/18 21:24 Aricept - PO 5 mg HS [facility] Administration Enoxaparin Sodium 50 mg 01/29/18 22:00 01/31/18 21:24 Lovenox - SQ 50 mg Q12H [facility] Administration Vancomycin HCl 1 gm in 200 mls @ 133.333 mls/hr 01/29/18 15:15 01/31/18 14:59 Vancomycin 1 Gm Premix - IVPB 133.333 mls/hr DAILY@1500 [facility] Administration Protocol Sodium Chloride 1,000 mls @ 75 mls/hr 02/01/18 07:45 1/2 Normal Saline IV ASDIR [facility] Mupirocin 1 applic 01/30/18 10:00 01/31/18 09:29 Bactroban 2% Ointment - TP 1 applic DAILY [facility] Administration Non-Formulary Medication 14 mg 01/29/18 10:00 Memantine Hcl [Namenda Xr] PO DAILY [facility] ASSESSMENT/PLAN: 87 year old female admitted with a chronic right leg wound which was noted to be worsening and required hospitalization and IV antibiotics. Patient was also noted to have Extensive DVT on right leg. Chronic Right Leg Wound -Pt with chronic leg wound for multiple years. Followed at wound care by Dr. Gil. -Was found to have worsening wound with erythema and warmth. Failed outpatient abx. Was sent to the ED from Wound care. -Continue Vancomycin 1gm daily day#4 -ID consult and vascular/wound care consult appreciated DVT -Extensive DVTs noted on Right LE Duplex -CTA chest with No definite PE -Continue Lovenox 50 mg BID Hemoconcentration -Will likely require outpatient malignancy/myelodysplastic workup -Will increase IV fluids to 1/2 NS @75mls/hr Dementia -At baseline as per the patients sister -Continue home meds, Namenda 14 mg PO Daily, Aricept 5 mg PO HS HTN -BP stable on this admission -Norvasc 10 mg PO Daily Prophylaxis -Pt on Lovenox 50mg SQ BID for treatment of DVT FEN -Fluids: 1/2 NS @ 75 cc/hr -Electrolytes: No electrolyte abnormalities, BMP in AM -Nutrition:Sodium controlled diet Disposition -DNR/DNI -Requires IV fluids due to elevated hgb/hct Case Discussed with Attending, Dr. Banks. Suzanne Bailey [id number] Visit type - Emergency Visit Emergency Visit: Yes ED Registration Date: 01/28/18 Care time: The patient presented to the Emergency Department on the above date and was hospitalized for further evaluation of their emergent condition. - New Patient This patient is new to me today: Yes Date on this admission: 02/01/18 - Critical Care Critical Care patient: No
[2018-02-01] MEDS ORDERED: PT OWN MED DRAWER 7, Y5N ONE ×2 (09:30→14:05)
[2018-02-01] MEDS: SODIUM CHLORIDE 0.45% 1,000 ML IV SCH ×2 (09:50→22:04)
[2018-02-01] MEDS: ENOXAPARIN NA (PORCINE) 60 MG/0.6 ML DISP.SYRIN SQ SCH ×2 (10:18→22:04)
[2018-02-01] MEDS: COLLAGENASE CLOSTRIDIUM HIST. 30 GRAMS TUBE TP SCH (10:19)
[2018-02-01] MEDS: amLODIPine BESYLATE 10 MG TABLET (FP) PO SCH (10:19)
[2018-02-01] MEDS: MUPIROCIN 2% TOPICAL OINTMENT 22 GM TUBE TP SCH (10:20)
--- NOTE | 2018-02-01 11:11 | PN ---
Progress Note (short form) - Note Progress Note: s: no cp sob palps dizzy o: Vital Signs Period Temp Pulse Resp BP Sys/Nixon Pulse Ox Last 24 Hr 98.2 F-98.3 F 70-77 16-22 139-164/73-98 98 Constitutional: Yes: Well Nourished, No Distress, Calm Eyes: Yes: Conjunctiva Clear Neck: Yes: Supple, Trachea Midline Respiratory: Yes: Regular, CTA Bilaterally Gastrointestinal: Yes: Normal Bowel Sounds, Soft Cardiovascular: Yes: Regular Rate and Rhythm JVD: No Heart Sounds: Yes: S1, S2 Extremities: Yes: Other (RLE foot/ankle c bandages) Edema: Yes Edema: RLE: 1+ Peripheral Pulses WNL: No no jaundice diaphoresis Neurological: Yes: Alert Psychiatric: Yes: Alert Current Medications Generic Name Dose Route Start Last Admin Trade Name Freq PRN Reason Stop Dose Admin Acetaminophen 650 mg 01/28/18 16:37 Tylenol - PO Q6H PRN FEVER Amlodipine Besylate 10 mg 01/28/18 19:30 02/01/18 10:19 Norvasc - PO 10 mg DAILY [facility] Administration Collagenase 1 applic 01/30/18 10:00 02/01/18 10:19 Santyl - TP 1 applic DAILY [facility] Administration Protocol Donepezil HCl 5 mg 01/28/18 22:00 01/31/18 21:24 Aricept - PO 5 mg HS BARB Administration Enoxaparin Sodium 50 mg 01/29/18 22:00 02/01/18 10:18 Lovenox - SQ 50 mg Q12H BARB Administration Vancomycin HCl 1 gm in 200 mls @ 133.333 mls/hr 01/29/18 15:15 01/31/18 14:59 Vancomycin 1 Gm Premix - IVPB 133.333 mls/hr DAILY@1500 [facility] Administration Protocol Sodium Chloride 1,000 mls @ 75 mls/hr 02/01/18 07:45 02/01/18 09:50 1/2 Normal Saline IV 75 mls/hr ASDIR [facility] Administration Mupirocin 1 applic 01/30/18 10:00 02/01/18 10:20 Bactroban 2% Ointment - TP 1 applic DAILY [facility] Administration Non-Formulary Medication 14 mg 01/29/18 10:00 Memantine Hcl [Namenda Xr] PO DAILY [facility] CBC, BMP 02/01/18 06:00 01/30/18 06:45 Assessment/Plan EKG: sinus, LAD, LVH RLE venous ultrasound: extensive DVT common and superficial femoral and popliteal veins echo 12/2017: nl lv/rv, mild-mod ar, nl rvsp 87F h/o HTN, CVA, RLE nonhealing wound, dementia p/w worsening draining and erythema from foot wound, positive trop, DVT pos trop - mild elevation, plateaued - no symptoms concerning for cardiac etiology, EKG no ischemic changes - not c/w ACS - echo unremarkable. cta chest shows no pe. DVT - on anticoagulation HTN - stable on amlodipine RLE wound - surgery consulted, IV abx per ID
--- NOTE | 2018-02-01 12:14 | PN ---
Progress Note, Physician History of Present Illness: Pt remains alert, afebrile. Denies any chills, dysuria, shortness of breath. Denies pain in Rt leg. - Current Medication List Current Medications: Active Medications Acetaminophen (Tylenol -) 650 mg PO Q6H PRN PRN Reason: FEVER Amlodipine Besylate (Norvasc -) 10 mg PO DAILY [facility] Last Admin: 02/01/18 10:19 Dose: 10 mg Collagenase (Santyl -) 1 applic TP DAILY [facility]; Protocol Last Admin: 02/01/18 10:19 Dose: 1 applic Donepezil HCl (Aricept -) 5 mg PO HS [facility] Last Admin: 01/31/18 21:24 Dose: 5 mg Enoxaparin Sodium (Lovenox -) 50 mg SQ Q12H [facility] Last Admin: 02/01/18 10:18 Dose: 50 mg Vancomycin HCl (Vancomycin 1 Gm Premix -) 1 gm in 200 mls @ 133.333 mls/hr IVPB DAILY@1500 [facility]; Protocol Last Admin: 01/31/18 14:59 Dose: 133.333 mls/hr Sodium Chloride (1/2 Normal Saline) 1,000 mls @ 75 mls/hr IV ASDIR [facility] Last Admin: 02/01/18 09:50 Dose: 75 mls/hr Mupirocin (Bactroban 2% Ointment -) 1 applic TP DAILY [facility] Last Admin: 02/01/18 10:20 Dose: 1 applic Non-Formulary Medication (Memantine Hcl [Namenda Xr]) 14 mg PO DAILY [facility] - Objective Vital Signs: Vital Signs Temperature 98.3 F 02/01/18 05:00 Pulse Rate 73 02/01/18 05:00 Respiratory Rate 18 02/01/18 05:00 Blood Pressure 164/90 02/01/18 05:00 O2 Sat by Pulse Oximetry (%) 98 01/31/18 21:00 Constitutional: Yes: No Distress, Calm Cardiovascular: Yes: Regular Rate and Rhythm Respiratory: Yes: Regular Gastrointestinal: Yes: Normal Bowel Sounds, Soft Extremities: Yes: Erythema Integumentary: Yes: Other (RLE ulcer with mild slough, no purulence or malodor RLE erythema with mild edema, less warm) Neurological: Yes: Alert Labs: CBC, BMP 02/01/18 06:00 01/30/18 06:45 INR, PTT INR 1.09 (0.83-1.09) 01/30/18 06:45 Problem List - Problems (1) DVT (deep venous thrombosis) Code(s): I82.409 - ACUTE EMBOLISM AND THOMBOS UNSP DEEP VN UNSP LOWER EXTREMITY (2) Venous ulcer Code(s): I87.8 - OTHER SPECIFIED DISORDERS OF VEINS (3) Cellulitis of right lower extremity Code(s): L03.115 - CELLULITIS OF RIGHT LOWER LIMB (4) Venous (peripheral) insufficiency Code(s): I87.2 - VENOUS INSUFFICIENCY (CHRONIC) (PERIPHERAL) (5) Venous stasis ulcer of right lower extremity Code(s): I83.019 - VARICOSE VEINS OF RIGHT LOWER EXTREMITY W ULCER OF UNSP SITE ; L97.919 - NON-PRS CHRONIC ULC UNSP PRT OF R LOW LEG W UNSP SEVERITY Assessment/Plan 87 y.o. female with PMH of dementia, hx of CVA, HTN, RLE ulcers with MRSA isolated presenting with RLE erythema/chills RLE cellulitis/infected wounds - improving Chronic LE ulcer/venous stasis RLE DVT Hx of CVA dementia HTN -- wbc elevated today, pt afebrile/appears stable -- repeat cbc,bmp tomorrow -- cont. Vancomcyin -- continue wound care -- on anticoagulation
--- NOTE | 2018-02-01 13:57 | PN ---
Teaching Attending Note Name of Resident: Suzanne Bailey ATTENDING PHYSICIAN STATEMENT I saw and evaluated the patient. I reviewed the resident's note and discussed the case with the resident. I agree with the resident's findings and plan as documented with exceptions below. SUBJECTIVE: Patient seen and examined. right leg pain improved, oriented to self only, attempting to get out of bed, no complaints but limited ROS given her dementia. OBJECTIVE: Vital Signs Period Temp Pulse Resp BP Sys/Nixon Pulse Ox Last 24 Hr 97.8 F-98.3 F 70-84 16-22 128-164/72-98 95-98 Intake & Output 01/29/18 01/30/18 01/31/18 02/01/18 23:59 23:59 23:59 23:59 Intake Total 350 450 294 504 Balance 350 450 294 504 Weight 110 lb 110 lb General: sitting in bed in no acute distress Extremities: RLE, decreased discharge, improved surrounding swelling/erythema/ warmth, positive pulses Active Medications Acetaminophen (Tylenol -) 650 mg PO Q6H PRN PRN Reason: FEVER Amlodipine Besylate (Norvasc -) 10 mg PO DAILY [facility] Last Admin: 02/01/18 10:19 Dose: 10 mg Collagenase (Santyl -) 1 applic TP DAILY [facility]; Protocol Last Admin: 02/01/18 10:19 Dose: 1 applic Donepezil HCl (Aricept -) 5 mg PO HS [facility] Last Admin: 01/31/18 21:24 Dose: 5 mg Enoxaparin Sodium (Lovenox -) 50 mg SQ Q12H [facility] Last Admin: 02/01/18 10:18 Dose: 50 mg Vancomycin HCl (Vancomycin 1 Gm Premix -) 1 gm in 200 mls @ 133.333 mls/hr IVPB DAILY@1500 [facility]; Protocol Last Admin: 01/31/18 14:59 Dose: 133.333 mls/hr Sodium Chloride (1/2 Normal Saline) 1,000 mls @ 75 mls/hr IV ASDIR [facility] Last Admin: 02/01/18 09:50 Dose: 75 mls/hr Mupirocin (Bactroban 2% Ointment -) 1 applic TP DAILY [facility] Last Admin: 02/01/18 10:20 Dose: 1 applic Non-Formulary Medication (Memantine Hcl [Namenda Xr]) 14 mg PO DAILY [facility] Laboratory Results - last 24 hr 01/31/18 02/01/18 15:00 06:00 WBC 12.1 H RBC 6.16 H Hgb 19.5 H Hct 60.4 H MCV 97.9 H MCH 31.6 MCHC 32.3 RDW 15.5 Plt Count 420 MPV 8.3 Absolute Neuts (auto) 10.6 H Neutrophils % 87.6 H Lymphocytes % 5.1 L D Monocytes % 5.8 Eosinophils % 0.8 Basophils % 0.7 Nucleated RBC % 0 Vancomycin Pre-Dose 14.00 H Microbiology 01/28/18 13:52 Blood - Peripheral Venous Blood Culture - Preliminary NO GROWTH OBTAINED AFTER 72 HOURS, INCUBATION TO CONTINUE FOR 2 DAYS. 01/28/18 13:52 Blood - Peripheral Venous Blood Culture - Preliminary NO GROWTH OBTAINED AFTER 72 HOURS, INCUBATION TO CONTINUE FOR 2 DAYS. 01/28/18 16:40 Urine - Urine Clean Catch Urine Culture - Final Contaminated: Please Repeat ASSESSMENT AND PLAN: 87 yof with chronic non healing RLE ulcer here with cellulitis, and elevated troponin. -Acute RLE celluitis superimposed on chronic non healing ulcer with stasis dermatitis -Extensive RLE DVT, likely from immobility, r/o hypercoagulability/underlying malignancy -Elevated troponin, ?Demand from above, Right heart strain ruled out -Elevated Hb, ?Hemoconcentration, Polycythemia, no prior history, improved -Leucocytosis, ?hemoconcentration -HTN -CVA -Dementia Plan: Vancomycin renal dosing day 5, no further rash or concerns.Vanco levels noted. ID input appreciated. Blood cx neg. Wound care/vascular surgery consult appreciated. Lovenox 50 mg BID.LLE neg for DVT. CTA neg. 2D echo limited but no evidence of right heart strain. Tn trended down. Cardiology input appreciated. Telemetry d/fausto. Hematology input appreciated. Follow up w/u for myeloproliferative disorder. Rise in all blood markers, ?component of hemoconcentration. IVF bolus and increase IVF and monitor CBC for now. Nutrition consult given concerns of poor oral intake. Will need eventual screening for malignancy if patient and family willing. Home amlodipine. DVTPPX lovenox as above Code status: Advance directives DNR/DNI. Plan discussed with nursing and all questions answered.
[2018-02-01] MEDS: VANCOMYCIN 1 GM PREMIX - 1 GM/200 ML BAG IVPB SCH (16:24)
--- NOTE | 2018-02-01 19:50 | PN ---
Progress Note (short form) - Note Progress Note: Patient seen and examined pleasantly confused Last Vital Signs Temp Pulse Resp BP Pulse Ox 98.5 F 79 18 135/69 95 02/01/18 18:00 02/01/18 18:00 02/01/18 18:00 02/01/18 18:00 02/01/18 10:00 Cor: RSR, No murmurs, No gallops Lungs: Clear to P&A Abd: Soft, Normal bowel sounds, No organomegaly Ext:No significant edema Abnormal Lab Results 02/01/18 06:00 WBC 12.1 H RBC 6.16 H Hgb 19.5 H Hct 60.4 H MCV 97.9 H Absolute Neuts (auto) 10.6 H Neutrophils % 87.6 H Lymphocytes % 5.1 L D 87 yof with h/o HTN, dementia, CVA, chronic non healing RLE ulcer here with cellulitis, and elevated troponin and we have been consulted for extensive RLE DVT. Patient with moderte o severe deentia. Answers yes/no questions but cant aashish out meaningful conversation Also with erythrocytosis currently on lovenox erythrocytosis, nl wbc/platelets will check w/u for underlying myeloproliferative disorder check JAK2 muttion and bcr;abl. check epo level Discussed with health care proxy -- Aminata Arias --[phone]/ --- regarding potential diagnosis of polycythemia. Discussed possibility of needing phlebotomy/hydrea. She wants to discuss with her sister and give us the decision about these interventions.
[2018-02-01 20:31] LABS: BASO % 0.6 % (0-2.0); HEMATOCRIT 51.2 % (32.4-45.2); HEMOGLOBIN 16.8 GM/dL (10.7-15.3); LYMPH % 6.3 % (8-40); MCH 31.8 pg (25.7-33.7); MCHC 32.7 g/dl (32.0-36.0); MEAN CELL VOLUME 97.2 fl (80-96); MEAN PLT VOLUME 8.4 fl (7.5-11.1); MONO % 8.6 % (3.8-10.2); NEUT % 83.5 % (42.8-82.8); PLATELET COUNT 435 K/MM3 (134-434); RBC 5.27 M/mm3 (3.60-5.2); RDW 15.4 % (11.6-15.6); WHITE BLOOD COUNT 10.8 K/mm3 (4.0-10.0)
[2018-02-01] MEDS: DONEPEZIL HCL 5 MG TABLET (FP) PO SCH (22:03)
[2018-02-02 06:46] LABS: BASO % 1.3 % (0-2.0); EOS % 2.1 % (0-4.5); HEMATOCRIT 51.4 % (32.4-45.2); LYMPH % 9.7 % (8-40); MCH 32.1 pg (25.7-33.7); MCHC 33.2 g/dl (32.0-36.0); MEAN CELL VOLUME 96.8 fl (80-96); MEAN PLT VOLUME 8.6 fl (7.5-11.1); MONO % 8.8 % (3.8-10.2); NEUT % 78.1 % (42.8-82.8); PLATELET COUNT 365 K/MM3 (134-434); RBC 5.31 M/mm3 (3.60-5.2); RDW 15.4 % (11.6-15.6); WHITE BLOOD COUNT 8.8 K/mm3 (4.0-10.0)
[2018-02-02 07:20] LABS: ANION GAP 11 MMOL/L (8-16); BLOOD UREA NITROGEN 20 mg/dL (7-18); CALCIUM 8.7 mg/dL (8.5-10.1); CHLORIDE 109 mmol/L (98-107); CO2 24 mmol/L (21-32); CREATININE 0.7 mg/dL (0.55-1.02); GLUCOSE,RANDOM 87 mg/dL (74-106); LDH 200 U/L (84-246); POTASSIUM 4.1 mmol/L (3.5-5.1); SODIUM 144 mmol/L (136-145); URIC ACID 4.9 mg/dL (2.6-7.2)
--- NOTE | 2018-02-02 09:18 | PN ---
Progress Note (short form) - Note Progress Note: s: no cp sob palps dizzy. o: Vital Signs Period Temp Pulse Resp BP Sys/Nixon Pulse Ox Last 24 Hr 97.7 F-98.6 F 63-84 18-18 124-146/61-75 95-95 Constitutional: Yes: Well Nourished, No Distress, Calm Eyes: Yes: Conjunctiva Clear Neck: Yes: Supple, Trachea Midline Respiratory: Yes: Regular, CTA Bilaterally Gastrointestinal: Yes: Normal Bowel Sounds, Soft Cardiovascular: Yes: Regular Rate and Rhythm JVD: No Heart Sounds: Yes: S1, S2 Extremities: Yes: Other (RLE foot/ankle c bandages) Edema: Yes Edema: RLE: 1+ Peripheral Pulses WNL: No no jaundice diaphoresis Neurological: Yes: Alert Psychiatric: Yes: Alert Current Medications Acetaminophen (Tylenol -) 650 mg PO Q6H PRN PRN Reason: FEVER Last Admin: 02/01/18 22:05 Dose: 650 mg Amlodipine Besylate (Norvasc -) 10 mg PO DAILY [facility] Last Admin: 02/02/18 09:29 Dose: 10 mg Collagenase (Santyl -) 1 applic TP DAILY [facility]; Protocol Last Admin: 02/02/18 09:29 Dose: 1 applic Donepezil HCl (Aricept -) 5 mg PO HS [facility] Last Admin: 02/01/18 22:03 Dose: 5 mg Enoxaparin Sodium (Lovenox -) 50 mg SQ Q12H [facility] Last Admin: 02/02/18 09:29 Dose: 50 mg Vancomycin HCl (Vancomycin 1 Gm Premix -) 1 gm in 200 mls @ 133.333 mls/hr IVPB DAILY@1500 [facility]; Protocol Last Admin: 02/01/18 16:24 Dose: 133.333 mls/hr Sodium Chloride (1/2 Normal Saline) 1,000 mls @ 75 mls/hr IV ASDIR [facility] Last Admin: 02/02/18 09:26 Dose: Not Given Mupirocin (Bactroban 2% Ointment -) 1 applic TP DAILY [facility] Last Admin: 02/02/18 09:30 Dose: Not Given Non-Formulary Medication (Memantine Hcl [Namenda Xr]) 14 mg PO DAILY [facility] Assessment/Plan EKG: sinus, LAD, LVH RLE venous ultrasound: extensive DVT common and superficial femoral and popliteal veins echo 12/2017: nl lv/rv, mild-mod ar, nl rvsp 87F h/o HTN, CVA, RLE nonhealing wound, dementia p/w worsening draining and erythema from foot wound, positive trop, DVT pos trop - mild elevation, plateaued - no symptoms concerning for cardiac etiology, EKG no ischemic changes - not c/w ACS - echo unremarkable. cta chest shows no pe. - stable from cardiac perspective DVT - on anticoagulation HTN - stable on amlodipine RLE wound - surgery consulted, IV abx per ID
[2018-02-02] MEDS: SODIUM CHLORIDE 0.45% 1,000 ML IV SCH (09:26)
[2018-02-02] MEDS: COLLAGENASE CLOSTRIDIUM HIST. 30 GRAMS TUBE TP SCH (09:29)
[2018-02-02] MEDS: amLODIPine BESYLATE 10 MG TABLET (FP) PO SCH (09:29)
[2018-02-02] MEDS: ENOXAPARIN NA (PORCINE) 60 MG/0.6 ML DISP.SYRIN SQ SCH (09:29)
[2018-02-02] MEDS: MUPIROCIN 2% TOPICAL OINTMENT 22 GM TUBE TP SCH (09:30)
--- NOTE | 2018-02-02 13:25 | PN ---
Physical Exam: SUBJECTIVE: Patient seen and examined this AM. She is pleasantly confused, though oriented. She has no complaints at this time and says her leg is feeling the same with no pain. Denies fevers, chills, n/v/d. OBJECTIVE: Vital Signs Period Temp Pulse Resp BP Sys/Nixon Pulse Ox Last 24 Hr 97.7 F-98.6 F 62-79 18-18 118-146/61-75 94-95 GENERAL: A&O x 3 this morning, no acute distress, though with mild dementia noted HEAD: Normocephalic, atraumatic. EYES: PERRL, no scleral icterus EARS, NOSE, THROAT: oropharynx clear without exudates. Moist mucous membranes. NECK: supple without lymphadenopathy LUNGS: CTA b/l, no crackles or wheezes HEART: Regular rate and rhythm, normal S1 and S2 without murmur ABDOMEN: Soft, nontender to palpation, normoactive bowel sounds MUSCULOSKELETAL: No bony deformities or tenderness. EXTREMITIES: 2+ pulses, warm, well-perfused. [id number] wound on lateral right distal leg, pink with some areas of slough. yellow drainage. improved from when I saw her last. NEUROLOGICAL: Cranial nerves II- and VIII-XII grossly intact. Mild residual facial weakness on left corner of mouth with mild lid droop on left eye. Normal speech mostly though not always appropriate responses PSYCHIATRIC: Cooperative. Good eye contact. Appropriate mood and affect. SKIN: Warm, dry, no rashes or lesions noted Laboratory Results - last 24 hr 02/01/18 02/02/18 02/02/18 19:30 06:00 06:15 WBC 10.8 H 8.8 RBC 5.27 H 5.31 H Hgb 16.8 H 17.0 H Hct 51.2 H D 51.4 H MCV 97.2 H 96.8 H MCH 31.8 32.1 MCHC 32.7 33.2 RDW 15.4 15.4 Plt Count 435 H 365 MPV 8.4 8.6 Absolute Neuts (auto) 9.0 H 6.9 Neutrophils % 83.5 H 78.1 Lymphocytes % 6.3 L D 9.7 D Monocytes % 8.6 8.8 Eosinophils % 1.0 2.1 D Basophils % 0.6 1.3 Nucleated RBC % 0 0 Sodium 144 Potassium 4.1 Chloride 109 H Carbon Dioxide 24 Anion Gap 11 BUN 20 H Creatinine 0.7 Creat Clearance w eGFR > 60 Random Glucose 87 Uric Acid 4.9 Calcium 8.7 LD Total 200 C-Reactive Protein 6.6 H 02/02/18 07:15 WBC RBC Hgb Hct MCV MCH MCHC RDW Plt Count MPV Absolute Neuts (auto) Neutrophils % Lymphocytes % Monocytes % Eosinophils % Basophils % Nucleated RBC % Sodium Potassium Chloride Carbon Dioxide Anion Gap BUN Creatinine Creat Clearance w eGFR Random Glucose Uric Acid Calcium LD Total C-Reactive Protein Cancelled Active Medications Generic Name Dose Route Start Last Admin Trade Name Freq PRN Reason Stop Dose Admin Acetaminophen 650 mg 01/28/18 16:37 02/01/18 22:05 Tylenol - PO 650 mg Q6H PRN Administration FEVER Amlodipine Besylate 10 mg 01/28/18 19:30 02/02/18 09:29 Norvasc - PO 10 mg DAILY [facility] Administration Collagenase 1 applic 01/30/18 10:00 02/02/18 09:29 Santyl - TP 1 applic DAILY [facility] Administration Protocol Donepezil HCl 5 mg 01/28/18 22:00 02/01/18 22:03 Aricept - PO 5 mg HS [facility] Administration Enoxaparin Sodium 50 mg 01/29/18 22:00 02/02/18 09:29 Lovenox - SQ 50 mg Q12H [facility] Administration Vancomycin HCl 1 gm in 200 mls @ 133.333 mls/hr 01/29/18 15:15 02/01/18 16:24 Vancomycin 1 Gm Premix - IVPB 133.333 mls/hr DAILY@1500 [facility] Administration Protocol Sodium Chloride 1,000 mls @ 75 mls/hr 02/01/18 07:45 02/02/18 09:26 1/2 Normal Saline IV Not Given ASDIR [facility] Mupirocin 1 applic 01/30/18 10:00 02/02/18 09:30 Bactroban 2% Ointment - TP Not Given DAILY [facility] Non-Formulary Medication 14 mg 01/29/18 10:00 Memantine Hcl [Namenda Xr] PO DAILY [facility] ASSESSMENT/PLAN: 87 yo female admitted with a chronic right leg wound which was noted to be worsening and required hospitalization and IV antibiotics. Pt was also noted to have Extensive DVT on right leg. Chronic Right Leg Wound -Pt with chronic leg wound for multiple years. Followed at wound care by Dr. Gil. -Was found to have worsening wound with erythema and warmth. Failed outpatient abx. Was sent to the ED from Wound care. -Seen by Dr. Del Rio who agreed pt required Abx. Given Meropenem in ED pt currently receiving only Vancomycin Vancomycin trough 14 this AM -Vancomycin trough for tomorrow prior to 4th dose -Erythema and swelling still improving from yesterday -ID consult and vascular/wound care consult appreciated -Pt can most likely be switched to PO Clindamycin pending ID recommendation DVT -Extensive DVTs noted on Right LE Duplex -Duplex of left leg ordered noted with no DVT -Tachypnea improved - Troponin 0.11 -> 0.20 -> 0.37 -> 0.35 -CTA chest with No definite PE -Lovenox switched to Eliquis 2.5 mg PO BID -H/H noted to be elevated, could require outpatient malignancy/myelodysplastic workup IV Fluid hydration Dimentia -At baseline as per the patients sister -Continue home meds Namenda 14 mg PO Daily Aricept 5 mg PO HS HTN -BP stable on this admission -Norvasc 10 mg PO Daily DVT Prophylaxis -Lovenox switched to Eliquis 2.5 mg PO BID FEN -Fluids: 1/2 NS @ 75 cc/hr -Electrolytes: No electrolyte abnormalities, BMP in AM -Nutrition:Sodium controlled diet with prosource. Disposition Continue to monitor on telemetry Visit type - Emergency Visit Emergency Visit: Yes ED Registration Date: 01/28/18 Care time: The patient presented to the Emergency Department on the above date and was hospitalized for further evaluation of their emergent condition. - New Patient This patient is new to me today: No - Critical Care Critical Care patient: No
[2018-02-02] MEDS: VANCOMYCIN 1 GM PREMIX - 1 GM/200 ML BAG IVPB SCH (15:36)
--- NOTE | 2018-02-02 16:03 | PN ---
Teaching Attending Note Name of Resident: Rashawn Conklin ATTENDING PHYSICIAN STATEMENT I saw and evaluated the patient. I reviewed the resident's note and discussed the case with the resident. I agree with the resident's findings and plan as documented. SUBJECTIVE:asymptomatic. states only has pain in the leg when dressings are changed. denies Cp, SOB, fever, chills, N/V/C/D OBJECTIVE: Last Vital Signs Temp Pulse Resp BP Pulse Ox 98.3 F 70 20 123/58 94 L 02/02/18 13:55 02/02/18 13:55 02/02/18 13:55 02/02/18 13:55 02/02/18 10:00 general NAD, bitemporal wasting, prominent clavicles, thin extremities CV S1 S2 RRR no murmur/rub/gallop Extremities RLE circumferential erythem. 6x5 cm lateral ulcer with fibrinous exudate and active bleeeding. pulses intact. area is slightly tender to touch ASSESSMENT AND PLAN: 87yo F wtih PMH HTN, CVA and dementia sent to the ER from wound care clinic for worsening cellulitis and hx of MRSA 1. RLE cellulitis- Hx of MRSA. cx here are negative. on vanco day 5. chemical debridement with santyl. will d/w ID about abx duration and treatment. local wound care per vascular surgery. 2. RLE DVT- CTA negative for PE. started on lovenox. no intervention per vascular PA. will switch to dose adjusted eliquis (weight and age) 3. Troponinemia- EKG no changes. echo with no WMA. no further cardiac workup. cardio consulted 4. Severe malnutrition- as evident by BMI and physical appearance. start prosource and MVI. dietary consult 5. Polycythemia- workup pending per hematology. JAK2,BCR,ABL,epo pending. 6. HTN- controlled. cont current management 7. CVA 8. dementia- on aricept and namenda 9. plan to return to SNF once medically optimized. anticipate in next 24H
[2018-02-02] MEDS: AMINO ACIDS/PROTEIN HYDROLYS 30 ML LIQUID.PKT PO SCH (17:59)
--- NOTE | 2018-02-02 18:16 | PN ---
Progress Note, Physician History of Present Illness: Pt is alert, afebrile. States she feels ok. Denies having any pain in LEs. - Current Medication List Current Medications: Active Medications Acetaminophen (Tylenol -) 650 mg PO Q6H PRN PRN Reason: FEVER Last Admin: 02/01/18 22:05 Dose: 650 mg Amino Acids (Prosource No Carb Liquid Pkt) 30 ml PO BID@0800,1730 [facility] Last Admin: 02/02/18 17:59 Dose: 30 ml Amlodipine Besylate (Norvasc -) 10 mg PO DAILY [facility] Last Admin: 02/02/18 09:29 Dose: 10 mg Apixaban (Eliquis -) 2.5 mg PO BID [facility] Collagenase (Santyl -) 1 applic TP DAILY [facility]; Protocol Last Admin: 02/02/18 09:29 Dose: 1 applic Donepezil HCl (Aricept -) 5 mg PO HS [facility] Last Admin: 02/01/18 22:03 Dose: 5 mg Vancomycin HCl (Vancomycin 1 Gm Premix -) 1 gm in 200 mls @ 133.333 mls/hr IVPB DAILY@1500 [facility]; Protocol Last Admin: 02/02/18 15:36 Dose: 133.333 mls/hr Sodium Chloride (1/2 Normal Saline) 1,000 mls @ 75 mls/hr IV ASDIR [facility] Last Admin: 02/02/18 09:26 Dose: Not Given Multivitamins/Minerals/Vitamin C (Tab-A-Vit -) 1 tab PO DAILY [facility] Mupirocin (Bactroban 2% Ointment -) 1 applic TP DAILY [facility] Last Admin: 02/02/18 09:30 Dose: Not Given Non-Formulary Medication (Memantine Hcl [Namenda Xr]) 14 mg PO DAILY [facility] - Objective Vital Signs: Vital Signs Temperature 98.3 F 02/02/18 13:55 Pulse Rate 70 02/02/18 13:55 Respiratory Rate 20 02/02/18 13:55 Blood Pressure 123/58 02/02/18 13:55 O2 Sat by Pulse Oximetry (%) 94 L 02/02/18 10:00 Constitutional: Yes: No Distress, Calm Cardiovascular: Yes: Regular Rate and Rhythm Respiratory: Yes: Regular Gastrointestinal: Yes: Normal Bowel Sounds, Soft Wound/Incision: Yes: Other (RLE erythema/warmth decreased, no tenderness, ulcer without purulence or malodor) Neurological: Yes: Alert Labs: CBC, BMP 02/02/18 06:00 02/02/18 06:15 INR, PTT INR 1.09 (0.83-1.09) 01/30/18 06:45 Problem List - Problems (1) DVT (deep venous thrombosis) Code(s): I82.409 - ACUTE EMBOLISM AND THOMBOS UNSP DEEP VN UNSP LOWER EXTREMITY (2) Venous ulcer Code(s): I87.8 - OTHER SPECIFIED DISORDERS OF VEINS (3) Cellulitis of right lower extremity Code(s): L03.115 - CELLULITIS OF RIGHT LOWER LIMB (4) Venous (peripheral) insufficiency Code(s): I87.2 - VENOUS INSUFFICIENCY (CHRONIC) (PERIPHERAL) (5) Venous stasis ulcer of right lower extremity Code(s): I83.019 - VARICOSE VEINS OF RIGHT LOWER EXTREMITY W ULCER OF UNSP SITE ; L97.919 - NON-PRS CHRONIC ULC UNSP PRT OF R LOW LEG W UNSP SEVERITY Assessment/Plan 87 y.o. female with PMH of dementia, hx of CVA, HTN, RLE ulcers with MRSA isolated previously presenting with RLE erythema/chills RLE cellulitis/infected wounds - clinically improving Chronic LE ulcer/venous stasis RLE DVT Hx of CVA dementia HTN -- d/c IV antibiotics, will start Clindamycin 300 mg po TID x 4 days -- needs continued wound care -- on anticoagulation she appears stable at this point
[2018-02-02] MEDS: APIXABAN 2.5 MG TABLET PO SCH (21:24)
[2018-02-02] MEDS: DONEPEZIL HCL 5 MG TABLET (FP) PO SCH (21:24)
[2018-02-03] MEDS: SODIUM CHLORIDE 0.45% 1,000 ML IV SCH (08:55)
[2018-02-03] MEDS: AMINO ACIDS/PROTEIN HYDROLYS 30 ML LIQUID.PKT PO SCH ×2 (08:55→17:37)
--- NOTE | 2018-02-03 09:45 | PN ---
Progress Note (short form) - Note Progress Note: s: no cp sob palps dizzy, denies complaints. o: Vital Signs Period Temp Pulse Resp BP Sys/Nixon Pulse Ox Last 24 Hr 97.4 F-98.3 F 62-72 18-20 118-132/58-83 94-96 Constitutional: Yes: Well Nourished, No Distress, Calm Eyes: Yes: Conjunctiva Clear Neck: Yes: Supple, Trachea Midline Respiratory: Yes: Regular, CTA Bilaterally Gastrointestinal: Yes: Normal Bowel Sounds, Soft Cardiovascular: Yes: Regular Rate and Rhythm JVD: No Heart Sounds: Yes: S1, S2 Extremities: Yes: Other (RLE foot/ankle c bandages) Edema: Yes Edema: RLE: 1+ Peripheral Pulses WNL: No no jaundice diaphoresis Neurological: Yes: Alert Psychiatric: Yes: Alert Current Medications Acetaminophen (Tylenol -) 650 mg PO Q6H PRN PRN Reason: FEVER Last Admin: 02/01/18 22:05 Dose: 650 mg Amino Acids (Prosource No Carb Liquid Pkt) 30 ml PO BID@0800,1730 [facility] Last Admin: 02/03/18 08:55 Dose: 30 ml Amlodipine Besylate (Norvasc -) 10 mg PO DAILY [facility] Last Admin: 02/02/18 09:29 Dose: 10 mg Apixaban (Eliquis -) 2.5 mg PO BID [facility] Last Admin: 02/02/18 21:24 Dose: 2.5 mg Clindamycin HCl (Cleocin -) 300 mg PO TID [facility] Collagenase (Santyl -) 1 applic TP DAILY [facility]; Protocol Last Admin: 02/02/18 09:29 Dose: 1 applic Donepezil HCl (Aricept -) 5 mg PO HS [facility] Last Admin: 02/02/18 21:24 Dose: 5 mg Sodium Chloride (1/2 Normal Saline) 1,000 mls @ 75 mls/hr IV ASDIR [facility] Last Admin: 02/03/18 08:55 Dose: 75 mls/hr Multivitamins/Minerals/Vitamin C (Tab-A-Vit -) 1 tab PO DAILY [facility] Mupirocin (Bactroban 2% Ointment -) 1 applic TP DAILY [facility] Last Admin: 02/02/18 09:30 Dose: Not Given Non-Formulary Medication (Memantine Hcl [Namenda Xr]) 14 mg PO DAILY [facility] Assessment/Plan EKG: sinus, LAD, LVH RLE venous ultrasound: extensive DVT common and superficial femoral and popliteal veins echo 12/2017: nl lv/rv, mild-mod ar, nl rvsp 87F h/o HTN, CVA, RLE nonhealing wound, dementia p/w worsening draining and erythema from foot wound, positive trop, DVT pos trop - mild elevation, plateaued - no symptoms concerning for cardiac etiology, EKG no ischemic changes - not c/w ACS - echo unremarkable. cta chest shows no pe. - stable from cardiac perspective DVT - on anticoagulation HTN - stable on amlodipine RLE wound - surgery consulted, IV abx per ID
[2018-02-03] MEDS ORDERED: MULTIVITAMINS (DAILY MVI) TABLET (FP) PO SCH (10:00)
[2018-02-03] MEDS: COLLAGENASE CLOSTRIDIUM HIST. 30 GRAMS TUBE TP SCH (10:22)
[2018-02-03] MEDS: amLODIPine BESYLATE 10 MG TABLET (FP) PO SCH (10:22)
[2018-02-03] MEDS: APIXABAN 2.5 MG TABLET PO SCH (10:22)
[2018-02-03] MEDS: MUPIROCIN 2% TOPICAL OINTMENT 22 GM TUBE TP SCH (10:22)
--- NOTE | 2018-02-03 13:11 | PN ---
Teaching Attending Note Name of Resident: Rashawn Conklin ATTENDING PHYSICIAN STATEMENT I saw and evaluated the patient. I reviewed the resident's note and discussed the case with the resident. I agree with the resident's findings and plan as documented. SUBJECTIVE:asymptomatic. denies Cp, SOB, fever, chills, N/V/C/D OBJECTIVE: Last Vital Signs Temp Pulse Resp BP Pulse Ox 97.6 F 62 20 123/60 96 02/03/18 10:00 02/03/18 10:00 02/03/18 10:00 02/03/18 10:00 02/03/18 09:00 general NAD, bitemporal wasting, prominent clavicles, thin extremities CV S1 S2 RRR no murmur/rub/gallop Extremities RLE bandage c/d/i ASSESSMENT AND PLAN: 87yo F wtih PMH HTN, CVA and dementia sent to the ER from wound care clinic for worsening cellulitis and hx of MRSA 1. RLE cellulitis- Hx of MRSA. cx here are negative. on vanco day 6. can switch to clindamycin for an additional 4 days. chemical debridement with santyl. local wound care per vascular surgery. 2. RLE DVT- CTA negative for PE. started on lovenox. no intervention per vascular PA. will switch to dose adjusted eliquis (weight and age) 3. Troponinemia- EKG no changes. echo with no WMA. no further cardiac workup. cardio consulted 4. Severe malnutrition- as evident by BMI and physical appearance. on prosource and MVI. dietary consult 5. Polycythemia- workup pending per hematology. JAK2,BCR,ABL,epo pending. 6. HTN- controlled. cont current management 7. CVA 8. dementia- on aricept and namenda 9. medically optimized for discharge. would benefit from VIRGILIO as only able to ambulate 2 feet. as per pt she is hesitant to going to [facility]. does not want me to reach out to her sister. informed CM who will d/w patient
[2018-02-03] MEDS ORDERED: CLINDAMYCIN HCL 150 MG CAPSULE (FP) PO SCH (14:00)
--- NOTE | 2018-02-03 14:07 | PN ---
Progress Note, Physician History of Present Illness: Pt alert, afebrile. Denies having any specific complaints. - Current Medication List Current Medications: Active Medications Acetaminophen (Tylenol -) 650 mg PO Q6H PRN PRN Reason: FEVER Last Admin: 02/01/18 22:05 Dose: 650 mg Amino Acids (Prosource No Carb Liquid Pkt) 30 ml PO BID@0800,1730 [facility] Last Admin: 02/03/18 08:55 Dose: 30 ml Amlodipine Besylate (Norvasc -) 10 mg PO DAILY [facility] Last Admin: 02/03/18 10:22 Dose: 10 mg Apixaban (Eliquis -) 2.5 mg PO BID [facility] Last Admin: 02/03/18 10:22 Dose: 2.5 mg Clindamycin HCl (Cleocin -) 300 mg PO TID [facility] Last Admin: 02/03/18 13:37 Dose: 300 mg Collagenase (Santyl -) 1 applic TP DAILY [facility]; Protocol Last Admin: 02/03/18 10:22 Dose: 1 applic Donepezil HCl (Aricept -) 5 mg PO HS [facility] Last Admin: 02/02/18 21:24 Dose: 5 mg Sodium Chloride (1/2 Normal Saline) 1,000 mls @ 75 mls/hr IV ASDIR [facility] Last Admin: 02/03/18 08:55 Dose: 75 mls/hr Multivitamins/Minerals/Vitamin C (Tab-A-Vit -) 1 tab PO DAILY [facility] Last Admin: 02/03/18 10:22 Dose: 1 tab Mupirocin (Bactroban 2% Ointment -) 1 applic TP DAILY [facility] Last Admin: 02/03/18 10:22 Dose: 1 applic Non-Formulary Medication (Memantine Hcl [Namenda Xr]) 14 mg PO DAILY [facility] - Objective Vital Signs: Vital Signs Temperature 97.6 F 02/03/18 10:00 Pulse Rate 62 02/03/18 10:00 Respiratory Rate 20 02/03/18 10:00 Blood Pressure 123/60 02/03/18 10:00 O2 Sat by Pulse Oximetry (%) 96 02/03/18 09:00 Constitutional: Yes: No Distress, Calm Cardiovascular: Yes: Regular Rate and Rhythm Respiratory: Yes: Regular Gastrointestinal: Yes: Normal Bowel Sounds, Soft Extremities: Yes: Erythema (RLE ulcer without purulence/necrosis, no tenderness less erythema/warmth) Edema: RLE: 1+ Neurological: Yes: Alert Labs: CBC, BMP 02/02/18 06:00 02/02/18 06:15 INR, PTT INR 1.09 (0.83-1.09) 01/30/18 06:45 Problem List - Problems (1) DVT (deep venous thrombosis) Code(s): I82.409 - ACUTE EMBOLISM AND THOMBOS UNSP DEEP VN UNSP LOWER EXTREMITY (2) Venous ulcer Code(s): I87.8 - OTHER SPECIFIED DISORDERS OF VEINS (3) Cellulitis of right lower extremity Code(s): L03.115 - CELLULITIS OF RIGHT LOWER LIMB (4) Venous (peripheral) insufficiency Code(s): I87.2 - VENOUS INSUFFICIENCY (CHRONIC) (PERIPHERAL) (5) Venous stasis ulcer of right lower extremity Code(s): I83.019 - VARICOSE VEINS OF RIGHT LOWER EXTREMITY W ULCER OF UNSP SITE ; L97.919 - NON-PRS CHRONIC ULC UNSP PRT OF R LOW LEG W UNSP SEVERITY Assessment/Plan 87 y.o. female with PMH of dementia, hx of CVA, HTN, RLE ulcers with MRSA isolated previously presenting with RLE erythema/chills RLE cellulitis/infected wounds improving Chronic LE ulcer/venous stasis DVT Hx of CVA dementia HTN -- on clindamycin for a few more days --continue wound care -- on anticoagulation pt afebrile, without distress at this time
--- NOTE | 2018-02-03 15:56 | PATH ---
Surgical Pathology Report Patient Name: PAOLA NO [facility]. Rec. #: [id number] /Age/Gender: 1930 (Age: 87) / F Account: [id number] Location: [facility] Taken: 02/02/2018 Received: 02/02/2018 Reported: 02/03/2018 Physicians: Sarah Diaz M.D. Specimen(s) Received A: 2 GREEN TOP TUBES 2 PURPLE TOP TUBES B: 2 GREEN TOP TUBES 2 PURPLE TOP TUBES Clinical History Erythrocytosis Final Diagnosis COMPREHENSIVE FLOW PANEL performed and interpreted at [facility] laboratory, [place], [place] ([id number]) shows the following: INTERPRETATION: Granulocytosis with no discrete atypical flow cytometric findings seen. See [facility] report ([id number]) for additional details. Additional molecular tests are pending and will be reported separately. Electronically Signed Georgia He M.D. Gross Description A. Received are 2 green top tubes and 2 purple top tubes of peripheral blood which are sent to [facility]. B. Received are 2 green top tubes and 2 purple top tubes of peripheral blood which are some sent to [facility]. DL/02/02/2018 saudi/02/02/2018
--- NOTE | 2018-02-03 17:46 | DS ---
Physical Exam: SUBJECTIVE: Patient seen and examined this AM. She is currently having no complaints. Says that she notices her leg wound but does not describe it as painful. Denies any fevers, chills, abdominal pain, n/v/d. OBJECTIVE: Vital Signs Period Temp Pulse Resp BP Sys/Nixon Pulse Ox Last 24 Hr 97.4 F-98.2 F 62-72 20-20 123-136/60-83 96-96 PHYSICAL EXAM GENERAL: A&O x 3, no acute distress, though with mild dementia noted with occasional inappropriate responses HEAD: Normocephalic, atraumatic. EYES: PERRL, no scleral icterus EARS, NOSE, THROAT: oropharynx clear without exudates. Moist mucous membranes. NECK: supple without lymphadenopathy LUNGS: CTA b/l, no crackles or wheezes HEART: Regular rate and rhythm, normal S1 and S2 without murmur ABDOMEN: Soft, nontender to palpation, normoactive bowel sounds MUSCULOSKELETAL: No bony deformities or tenderness. EXTREMITIES: 2+ pulses, warm, well-perfused. [id number] wound on lateral right distal leg, pink with some areas of slough. minimal yellow drainage NEUROLOGICAL: Cranial nerves II- and VIII-XII grossly intact. Mild residual facial weakness on left corner of mouth with mild lid droop on left eye. Normal speech mostly though not always appropriate responses PSYCHIATRIC: Cooperative. Good eye contact. Appropriate mood and affect. SKIN: Warm, dry, no rashes or lesions noted LABS Laboratory Results - last 24 hr 01/30/18 02/02/18 06:45 07:15 Hct 52.4 H Erythropoietin 1.8 L Folate >1183 Folate Hemolysate >620.0 IMAGING: CXR: Mild Cardiomegaly without evidence of acute lung pathology Right Tibia/Fibula Radiograph: Degenerative changes in joints, no blastic or lytic lesions Chest CTA: No evidence of acute pulmonary embolism, minimal bibasilar atelectasis HOSPITAL COURSE: Date of Admission:01/28/18 Date of Discharge: 02/03/18 87 yo F resident of [facility], with PMH of HTN, actinic keratosis, CVA ( L sided mild facial deficit), RLE non healing wound, dementia, overactive bladder, admitted for IV antibiotics following outpatient treatment failure for cellulitis overlying her chronic wound. She was initially seen in wound care and was sent to the ED after being found to have worsening erythema, swelling, and warmth. She was treated with IV Vancomycin to cover for MRSA as her wound has grown MRSA on previous admissions. She received 5 days of IV Vancomycin and was converted to PO Clindamycin TID for 4 additional days on discharge. On admission, she had mildly elevated troponins which peaked and trended down. She also had some mild tachypnea, so RLE Duplex was performed and resulted as above with extensive DVTs in the right leg. CTA performed and negative as above. Pt was started on Lovenox BID for DVT treatment and converted to 2.5 mg Eliquis BID prior to discharge. Her wound is improving. She is hemodynamically stable and deemed medically safe to return to [facility] facility at this time. Minutes to complete discharge: 40 Discharge Summary Reason For Visit: CELLULITIS; ELEVATED TROPONIN Current Active Problems Cellulitis (Acute) DVT (deep venous thrombosis) (Acute) Venous ulcer (Acute) Condition: Good - Instructions Diet, Activity, Other Instructions: You were admitted to the hospital for a skin infection of a wound which you have chronically had for a couple years. You are seen regularly by the [facility]. You should make sure to continue following there for wound care. You initially were given outpatient antibiotics which did not improve your skin infection so it was determined that you would require inpatient Intravenous antibiotics. You were see by an infectious disease doctor who recommended your antibiotics, and now agrees you can be switched to oral antibiotics and discharged from the hospital. You should also continue to have the Santyl applied to the wound daily with daily dressing changes, with close follow up by the wound clinic. While you were here, you were found to have clots in the veins of your right leg. You were seen by hematology/oncology to look for a cause of the clot. You were started on a new blood thinning medication as explained below. If you have any falls and hit your head, or if you have any episodes of uncontrolled bleeding, you should call 911 or return to the Emergency Department. Medications: Please take your Clindamycin (antibiotic) 300 mg by mouth 3 times daily, one pill in the morning, one at noon, and one at night for 4 days including today. Please take the Eliquis (blood thinner) 2.5 mg by mouth twice daily, one pill in the morning and one at night. Please make sure to be seen by your primary care physician within one week Please also make sure to follow up with the wound care clinic within 1 week Please make sure to be seen by a supervisor prop making/oncologist in 1-2 weeks. Referrals: Esvin Zaldivar MD [Primary Care Provider] - 1 Week Nate Gil MD [Staff Physician] - 1 Week Judah Kraus MD [Staff Physician] - 2 Weeks Disposition: [facility] - Home Medications Comprehensive Discharge Medication List: Ambulatory Orders Tylenol 325 mg PO PRN 11/08/15 Multivitamin 1 tab PO DAILY 12/13/15 Vitamin B12 1 tab PO DAILY 12/27/15 Vitamin C 1 tab PO DAILY 01/29/17 Amlodipine Besylate 10 mg PO DAILY 01/28/18 Donepezil HCl [Aricept] 5 mg PO HS 01/28/18 Memantine HCl [Namenda Xr] 14 mg PO DAILY 01/28/18 Amino Acids/Protein Hydrolys [Prosource No Carb Liquid Pkt] 30 ml PO BID@0800, 1730 packet 02/03/18 Apixaban [Eliquis -] 2.5 mg PO BID tablet 02/03/18 Clindamycin [Cleocin -] 300 mg PO TID capsule 02/03/18 Collagenase Clostridium Hist. [Santyl -] 1 applic TP DAILY tube 02/03/18 Multivitamins [Multivit ([facility] Formulary)] 1 tab PO DAILY tab 02/03/18 This patient is new to me today: No Emergency Visit: Yes ED Registration Date: 01/28/18 Care time: The patient presented to the Emergency Department on the above date and was hospitalized for further evaluation of their emergent condition. Critical Care patient: No - Discharge Referral Referred to [facility] Med [facility].: No
[2018-02-03 19:06] VITALS: BP 149/83; PULSE 79; TEMP 98.6
--- NOTE | 2018-02-06 16:48 | PN ---
Progress Note (short form) - Note Progress Note: Called patients health care proxy Ms. Hugo Coates --[phone] --- regarding diagnosis of polycythemia vera. Discussed with her that the test results of erythropoietin level and JAK2 mutaton were back and were consistent with polycythemia vera. Discussed complications associated with P. vera--thrombosis/strokes/ cardiovascular/bleeding/clots. discussed management --phlebotomy/hydrea. Patient allergic to ASA Recommended that she request a grounding engineer follow her aunt at the shelter and discuss management options, given her overall dementia and poor functional status. She is unsure about aggressiveness of management at this time given her aunts overall status. She will discuss with her sister and shelter doctor
== END 2018-02-03 19:35 | DRG 602 ==
LOC: JER 13:13 → JERBED 14:36 → J4S 21:10
PROVIDERS: ADMIT Hospitalist; ATTEND Internal Medicine
DX: L03.115 Cellulitis of right lower limb (principal); E43 Unspecified severe protein-calorie malnutrition; I82.431 Acute embolism and thrombosis of right popliteal vein; I82.411 Acute embolism and thrombosis of right femoral vein; Z68.1 Body mass index [BMI] 19.9 or less, adult; L57.0 Actinic keratosis; I10 Essential (primary) hypertension; F03.90 Unspecified dementia, unspecified severity, without behavioral disturbance, psychotic disturbance, mood disturbance, and anxiety
CPT/HCPCS: 36415; 71045-TC-FY; 71275-TC; 73590-TC-RT-FY; 80048; 80053; 81003; 81015; 82607; 82668; 82747; 82803; 83605; 83615; 83735; 84100; 84439; 84443; 84484; 84550; 85014; 85025; 85610; 85651; 85730; 86140; 87040; 87086; 88300-TC; 93005; 93010; 93306-TC; 93971-TC; 97116-GP; 97161-GP; 99285-25; G0463-25; G0480